=== PATIENT | male | born 1955 | race Caucasian/White ===

== ENCOUNTER → 2017-07-24 08:09 | Outpatient (CLI) | payer OTHER, SELFPAY ==
[2017-06-05 23:33] VITALS: BMI 25.1
[2017-06-06 01:41] VITALS: BP 143/89
== END ==
PROVIDERS: Family Provider Family Medicine Geriatric Medicine; PCP Family Medicine Geriatric Medicine; Visit Provider Internal Medicine Gastroenterology
DX: L29.0 Pruritus ani (principal)

== ENCOUNTER → 2017-08-04 08:07 | Outpatient (CLI) | payer OTHER, SELFPAY | PROVIDERS: Family Provider Family Medicine Geriatric Medicine; PCP Family Medicine Geriatric Medicine; Visit Provider Internal Medicine Gastroenterology | DX: L29.0 Pruritus ani (principal) ==

== ENCOUNTER → 2017-09-24 17:20 | Outpatient (CLI) | payer OTHER, SELFPAY ==
--- NOTE | 2017-09-24 | PROSBIL_PTH ---
PATIENT: BETH KESSLER LOC: [facility] U#:[id number] AGE/SX: 69/M ROOM: RE09/24/[address]: Dr. Billy Reyes MD : 1955 BED: DIS: SPEC #: [id number] RECD: 09/25/17 13:38 STATUS: PHIL SALLY #: [id number] ALEXIS: 09/24/17 00:[address]: Billy Reyes DEPT: SURGICAL PATHOLOGY RECD BY: Cristobal Tomlinson ENTERED: 09/25/17 13:39 SP TYPE: PROST BX KEIRA DR: Dr. Corey Kim MD Tissues: A - PROSTATE RIGHT B - PROSTATE RIGHT C - PROSTATE RIGHT D - PROSTATE LEFT E - PROSTATE LEFT F - PROSTATE LEFT Procedures: PROSTATE BX HEADER OPERATION: Prostate biopsy PRE-OP DIAGNOSIS: Elevated PSA TISSUE SUBMITTED: A - Right apex, B - Right mid, C - Right base, D - Left apex, E - Left mid, F - Left base MICROSCOPIC DIAGNOSIS A. Right prostate, apex, core biopsy: Prostatic tissue, negative for malignancy. B. Right prostate, mid, core biopsy: Prostatic tissue, negative for malignancy. C. Right prostate, base, core biopsy: Focal high-grade prostatic intraepithelial neoplasia (HGPIN). D. Left prostate, apex, core biopsy: Prostatic tissue, negative for malignancy. Focal atrophy. E. Left prostate, mid, core biopsy: Prostatic tissue, negative for malignancy. F. Left prostate, base, core biopsy: Prostatic tissue, negative for malignancy. SJ:rickey 09/28/17 MICROSCOPIC DESCRIPTION Slides are reviewed. GROSS DESCRIPTION A - Received is one container designated prostate, right apex. The specimen consists of two elongated fragments of light cain-white soft tissue each measuring 1.5 cm in length and 0.1 cm in diameter. The specimen is totally submitted in one cassette. B - Received is one container designated prostate, right mid. The specimen consists of two elongated fragments of light cain-white soft tissue each measuring 1.5 cm in length and 0.1 cm in diameter. The specimen is totally submitted in one cassette. C - Received is one container designated prostate, right base. The specimen consists of two elongated fragments of light cain-white soft tissue each measuring 1.5 cm in length and 0.1 cm in diameter. The specimen is totally submitted in one cassette. D - Received is one container designated prostate, left apex. The specimen consists of two elongated fragments of light cain-white soft tissue each measuring 1 cm in length and 0.1 cm in diameter. The specimen is totally submitted in one cassette. E - Received is one container designated prostate, left mid. The specimen consists of two elongated fragments of light cain-white soft tissue measuring 1 and 1.5 cm in length and 0.1 cm in diameter. The specimen is totally submitted in one cassette. F - Received is one container designated prostate, left base. The specimen consists of two elongated fragments of light cain-white soft tissue measuring 1 and 1.5 cm in length and 0.1 cm in diameter. The specimen is totally submitted in one cassette. / SJ:rg 09/25/17 TC:5 CPT: 57161 x6
== END ==
PROVIDERS: Family Provider Family Medicine Geriatric Medicine; PCP Family Medicine Geriatric Medicine; Visit Provider Urology
DX: R97.20 Elevated prostate specific antigen [PSA] (principal)
CPT/HCPCS: 88305; G0416

== ENCOUNTER → 2018-04-01 08:04 | Outpatient (CLI) | payer OTHER, SELFPAY ==
[2018-04-01 09:34] LABS: PSA,Total- Diagnostic 3.07 ng/mL (0.0-4.0)
== END ==
PROVIDERS: Family Provider Family Medicine Geriatric Medicine; PCP Family Medicine Geriatric Medicine; Referring Provider Urology; Visit Provider Urology
DX: R97.20 Elevated prostate specific antigen [PSA] (principal)
CPT/HCPCS: 36415; 84153

== ENCOUNTER → 2018-05-21 13:44 | Outpatient (CLI) | payer OTHER, SELFPAY ==
--- NOTE | 2018-05-21 13:47 | US_ITS ---
HISTORY: RT NECK LUMP TECHNIQUE: Santos scale and color doppler imaging was performed with attention to the right neck. COMPARISON: CT neck report (but not images 06/08/2010) FINDINGS: In the region of patient concern, the superficial right neck shows an oval benign-appearing lymph node measuring 1.4 x 0.4 x 1 cm. Associated vascular flow and fatty central hilum. No abscess or suspicious fluid collection. US/Head/Neck Soft Tissue IMPRESSION: 1. The right neck palpable lump shows an oval benign-appearing lymph node measuring 1.4 cm in length. Possible reactive node and recommend continued clinical follow-up. 2. If the palpable lump enlarges or symptoms worsen, further correlation with neck CT could be obtained. at 1050 Reported and signed by: Chaim Villeda MD Electronically Signed: Chaim Villeda, at 2:33 EST Tel , Service support ,
--- OUTSIDE RECORDS SUMMARY | 2018-07-16 13:07 | XMS RPT_ITS ---
:1955 Author Organization OHIP Support Name Relationship Address Phone GONZALO KESSLER Unavailable [address] + [place] [address] [employer] Unavailable [address] + [place] [address] [facility] GONZALO Unavailable [address] + [place] [address] [employer] Unavailable [address] + [place] [address] [facility] GONZALO Unavailable [address] + [place] [address] [employer] Unavailable [address] + [place] [address] [facility] GONZALO Unavailable [address] [phone] [place] [address] U Unavailable Unavailable Unavailable [facility] GONZALO Unavailable [address] [place] [phone] [place] [address] U Unavailable Unavailable Unavailable [facility] GONZALO Unavailable [address] [place] [phone] [place] [address] [employer] Unavailable [address] + [place] [address] [facility] Unavailable [address] [place] [phone] [place] [address] [employer] Unavailable [address] + [place] [address] [facility] Unavailable [address] [place] [phone] [place] [address] [employer] Unavailable [address] + [place] [address] GONZALO KESSLER Unavailable [address] [place] [phone] [place] [address] [employer] Unavailable [address] + [place] [address] Care Team Providers Name Role Phone Julio, Corey Chi Attending Unavailable Julio, Corey Chi Primary Care Unavailable Dorian López Attending Unavailable Dorian López Referring Unavailable Julio, Corey Chi Primary Care Unavailable Jorge Luis Lam Attending Unavailable Julio, Corey Chi Referring Unavailable EricBilly Attending Unavailable Julio, Corey Chi Primary Care Unavailable EricBillyJamel Referring Unavailable Julio, Corey Chi Attending Unavailable Julio, Corey Chi Referring Unavailable Julio, Corey Chi Primary Care Unavailable Julio, Corey Chi Attending Unavailable Julio, Corey Chi Referring Unavailable Julio, Corey Chi Primary Care Unavailable Dorian López Attending Unavailable Julio, Corey Chi Primary Care Unavailable Dorian López Attending Unavailable Julio, Corey Chi Primary Care Unavailable EricBilly Attending Unavailable Julio, Corey Chi Primary Care Unavailable EricBilly Referring Unavailable PROBLEMS PROBLEMS DATE TYPE CONDITION / CODE ATTENDING STATUS SOURCE 08/21/2017 Unknown L29.0 - Pruritus Dorian López Active [place] ani / Community L29.0(ICD-10) Hospital Repository 07/06/2017 Unknown R53.83 - Other Julio, Corey Chi Active [place] fatigue / Community R53.83(ICD-10) Hospital Repository 07/06/2017 Unknown Z12.5 - Julio, Corey Chi Active [place] Encounter for Community screening for Hospital malignant Repository neoplasm of prostate / Z12.5(ICD-10) 07/06/2017 Unknown Z13.89 - Julio, Corey Chi Active [place] Encounter for Community screening for Hospital other disorder / Repository Z13.89(ICD-10) PROCEDURES PROCEDURES No Procedure Records FoundRESULTS RESULTS CREATININE FINGERSTICK Collected: 05/27/2018 Status: F Source: [place] 7:35 AM [facility] [place] REPOSITORY TYPE CODE TESTS RESULT OUT OF RANGE REFERENCE UNITS LAB L9100.0210 0.70-1.30 mg/dL Normal CREATININE WB 1.0 Performed By: #### L9100.0200 #### [facility] Point of Care [address] [place] [address] SOFT TISSUE NECK WITH Observed: 05/27/2018 Status: F Source: [place] CONTRAST 7:26 AM [facility] [place] REPOSITORY [facility] [address] [place] [address] Soft Tissue Neck WITH Contrast MR#: [id number] Acct: [id number] Name: BETH KESSLER Rep #: [id number] : 1955 M 62 From: Alfredo Martinez MD PCP: Corey Kim MD, Chi Status: REG CLI Study: Soft Tissue Neck WITH Contrast Date of Exam: 05/27/18 Exam# [id number] Ordering Dr: Corey Kim MD STUDY: CT SOFT TISSUE NECK WITH CONTRAST REASON FOR EXAM: Male, 62 years old. Right-sided neck mass RADIATION DOSAGE (If Supplied By Facility): CTDIvol = ( 20.32 ) mGy, DLP = ( 603.95 ) mGycm TECHNIQUE: The patient was scanned in a multi-detector CT scanner. High resolution transaxial imaging was performed following intravenous administration of 75CC ml of Isovue 300 contrast material. Sagittal and coronal images were reconstructed. Individualized dose optimization techniques were used for this CT. COMPARISON: Right neck ultrasound May 21, 2018; CT soft tissues neck June 08, 2010 FINDINGS: Normal bilateral parotid glands. Normal bilateral executive vice president and chief financial officer spaces. Normal bilateral parapharyngeal spaces. There is mild, noncalcified, eccentric plaquing at the posterior origin of the right internal carotid artery with less than 25% narrowing. Partially calcified plaquing is less than 25% narrowing seen along the posterior wall of the left internal carotid artery origin. Normal bilateral sublingual and submandibular glands and spaces. Normal visualized nasopharynx. Normal retropharyngeal space. Normal perivertebral space. There is borderline fullness along the left anterolateral wall of the hypopharynx without a defined mass, which may be normal for this patient or could reflect minor inflammatory change. Mild lobulated mucosal/submucosal fullness at the posterior base of the tongue, greater on the left, may reflect localized lymphoid hypertrophy. The visualized tongue and oropharynx are otherwise normal. The visualized cervical lymph nodes (levels I-) are within normal size limits, and maintain normal morphology. A metal BB was placed along the right side of the neck (series 2 image 72, series 602 image 60). Again seen nearby is a benign-appearing 14 x 8.5 x 4.5 mm subcutaneous lymph node. There is no other demonstrated solid or cystic mass lesion. There is no abnormal contrast enhancement. Normal epiglottis, bilateral vallecula and hypopharynx. The pre-epiglottic and paraglottic adipose spaces are normal. Normal visualized bilateral piriform sinuses, aryepiglottic folds, vocal cords, and arytenoid-cricoid articulations. Normal subglottic trachea. Normal bilateral lobes of the thyroid gland. 5 mm well-defined low-density seen in the right lobe on prior CT is no longer apparent. Normal visualized pulmonary apices. There is a small fluid level in the dependent left maxillary sinus. The mid to posterior ethmoid sinus is opacified. The frontal sinuses are not included in the [id number]. The remaining paranasal sinuses are clear. There is multilevel degenerative changes of the cervical spine. CT/Soft Tissue Neck WITH Contrast IMPRESSION: 1. Small, benign-appearing lymph node in the subcutaneous tissues correlates to the palpable lesion on the right neck. 2. Small fluid level in the left maxillary sinus and opacified mid to posterior ethmoid sinus, consistent with sinusitis. 3. Borderline to mild fullness along the left posterior tongue as well as the left anterolateral wall of the hypopharynx. No defined mass. This could reflect mild lymphoid hypertrophy or other minor inflammatory change. 4. No demonstrated adenopathy. 5. Mild eccentric atherosclerotic plaquing with less than 25% narrowing at the proximal bilateral internal carotid arteries, stable on the right. 6. Multilevel degenerative changes of the cervical spine. Electronically Signed: Franki Martinez MD at 18:06 EST , Service support , CC: Corey Kim MD Chemical Preparer: Signed HEAD/NECK SOFT TISSUE Observed: 05/21/2018 Status: F Source: [place] 1:47 PM [facility] REPOSITORY [facility] [place] [address] Head/Neck Soft Tissue MR#: [id number] Acct: [id number] Name: BETH KESSLER Rep #: [id number] : 1955 M 62 From: Chaim Villeda MD PCP: Corey Kim MD, Chi Status: REG CLI Study: Head/Neck Soft Tissue Date of Exam: 05/21/18 Exam# [id number] Ordering Dr: Corey Kim MD HISTORY: RT NECK LUMP TECHNIQUE: Santos scale and color doppler imaging was performed with attention to the right neck. COMPARISON: CT neck report (but not images 06/08/2010) FINDINGS: In the region of patient concern, the superficial right neck shows an oval benign-appearing lymph node measuring 1.4 x 0.4 x 1 cm. Associated vascular flow and fatty central hilum. No abscess or suspicious fluid collection. US/Head/Neck Soft Tissue IMPRESSION: 1. The right neck palpable lump shows an oval benign-appearing lymph node measuring 1.4 cm in length. Possible reactive node and recommend continued clinical follow-up. 2. If the palpable lump enlarges or symptoms worsen, further correlation with neck CT could be obtained. at 0235 Reported and signed by: Chaim Villeda MD Electronically Signed: Chaim Villeda, at 2:33 EST Tel , Service support , CC: Corey Kim MD Chemical Preparer: Signed PSA,TOTAL- DIAGNOSTIC Collected: 04/01/2018 Status: F Source: [place] 8:11 AM [facility] [place] REPOSITORY TYPE CODE TESTS RESULT OUT OF RANGE REFERENCE UNITS LAB L501.9940 0.0-4.0 ng/mL PSA, Normal DIAGNOSTIC 3.07 Result Comment: This test was performed using the TPSA assay method for the Curio chemistry system. Values obtained with different assay methods cannot be used interchangably. When changing PSA assays in the course of monitoring a patient, additional sequential testing should be carried out to confirm baseline values. Performed By: #### L501.9940 #### [facility] [address] [place], [address] PROSTATE BIOPSY Observed: 09/24/2017 Status: F Source: [place] BILATERAL 12:00 AM [facility] REPOSITORY Patient: BETH KESSLER : 1955 (61/M) Acct Num: [id number] Phys: Eric SALINAS,Jamel Unit Num: [id number] Loc: LABSPEC Specimen: [id number] Received: 09/25/171337 Spec Type: PROST BX TISSUES TISSUES: A. PROSTATE RIGHT - APEX B. PROSTATE RIGHT - MID C. PROSTATE RIGHT - BASE D. PROSTATE LEFT - APEX E. PROSTATE LEFT - MID F. PROSTATE LEFT - BASE GROSS DESCRIPTION A - Received is one container designated prostate, right apex. The specimen consists of two elongated fragments of light cain-white soft tissue each measuring 1.5 cm in length and 0.1 cm in diameter. The specimen is totally submitted in one cassette. B - Received is one container designated prostate, right mid. The specimen consists of two elongated fragments of light cain-white soft tissue each measuring 1.5 cm in length and 0.1 cm in diameter. The specimen is totally submitted in one cassette. C - Received is one container designated prostate, right base. The specimen consists of two elongated fragments of light cain-white soft tissue each measuring 1.5 cm in length and 0.1 cm in diameter. The specimen is totally submitted in one cassette. D - Received is one container designated prostate, left apex. The specimen consists of two elongated fragments of light cain-white soft tissue each measuring 1 cm in length and 0.1 cm in diameter. The specimen is totally submitted in one cassette. E - Received is one container designated prostate, left mid. The specimen consists of two elongated fragments of light cain-white soft tissue measuring 1 and 1.5 cm in length and 0.1 cm in diameter. The specimen is totally submitted in one cassette. F - Received is one container designated prostate, left base. The specimen consists of two elongated fragments of light cain-white soft tissue measuring 1 and 1.5 cm in length and 0.1 cm in diameter. The specimen is totally submitted in one cassette. / MARCELLE:rickey 09/25/17 TC:5 CPT: 40271 x6 HEADER OPERATION: Prostate biopsy PRE-OP DIAGNOSIS: Elevated PSA TISSUE SUBMITTED: A - Right apex, B - Right mid, C - Right base, D - Left apex, E - Left mid, F - Left base MICROSCOPIC DESCRIPTION Slides are reviewed. MICROSCOPIC DIAGNOSIS A. Right prostate, apex, core biopsy: Prostatic tissue, negative for malignancy. B. Right prostate, mid, core biopsy: Prostatic tissue, negative for malignancy. C. Right prostate, base, core biopsy: Focal high-grade prostatic intraepithelial neoplasia (HGPIN). D. Left prostate, apex, core biopsy: Prostatic tissue, negative for malignancy. Focal atrophy. E. Left prostate, mid, core biopsy: Prostatic tissue, negative for malignancy. F. Left prostate, base, core biopsy: Prostatic tissue, negative for malignancy. SJ:rickey 09/28/17 Signed Mayito Kirby 09/28/17 <signature on file> Performed By: #### PPROSBIL #### [facility] [address] [place], [address] MISCELLANEOUS LAB Collected: 08/04/2017 Status: F Source: [place] PROCEDURE 7:00 AM [facility] REPOSITORY Order Comment: Test(s) Ordered: [id number] pin worm test TYPE CODE TESTS RESULT OUT OF RANGE REFERENCE UNITS LAB L801.1541 Normal [facility] [place] Result Comment: TEST RESULT LIMITS Pinworm Prep - Enterobius No pinworm eggs seen TESTING PERFORMED AT [facility]. ORIGINAL REPORT ON FILE IN LAB CONTAINS ADDITIONAL TEST SITE INFORMATION. Performed By: #### L801.1541 #### [facility] [address] [place], [address] MISCELLANEOUS LAB Collected: 07/23/2017 Status: F Source: [place] PROCEDURE 7:37 PM [facility] REPOSITORY Order Comment: Test(s) Ordered: PIN WORM TYPE CODE TESTS RESULT OUT OF RANGE REFERENCE UNITS LAB L801.1541 Normal [facility] [place] Result Comment: TEST RESULT LIMITS Pinworm Prep - Enterobius No pinworm eggs seen. None Seen TESTING PERFORMED AT [facility]. ORIGINAL REPORT ON FILE IN LAB CONTAINS ADDITIONAL TEST SITE INFORMATION. Performed By: #### L801.1541 #### [facility] [address] [place], [address] CBC W/DIFF, AUTOMATED Collected: 07/06/2017 Status: F Source: [place] 9:39 AM [facility] REPOSITORY TYPE CODE TESTS RESULT OUT OF RANGE REFERENCE UNITS LAB L100.1000 4.4-11.0 K/mm3 Normal WBC 7.1 LAB L100.1200 4.6-6.2 M/mm3 Normal RBC 5.03 LAB L100.1300 13.0-16.5 g/dl Normal HGB 15.2 LAB L100.1400 40-54 % Normal HCT 45.6 LAB L100.1500 80-94 fL Normal MCV 90.7 LAB L100.1600 27.0-32.0 pg Normal MCH 30.2 LAB L100.1700 32-36 g/gl Normal MCHC 33.3 LAB L100.1810 11.6-14.6 % Normal RDW CV 13.8 LAB L100.1820 35.1-43.9 fl High RDW SD 45.4 LAB L100.1900 150-450 K/mm3 Normal PLT 406 LAB L100.2000 6.2-12.0 fl Normal MPV 9.7 LAB L100.2100 47-70 % Normal NEUT% 51.5 LAB L100.2200 19-41 % Normal LY% 33.5 LAB L100.2300 0-10 % High MONO% 11.9 LAB L100.2400 0-5 % Normal EO% 1.7 LAB L100.2500 0-1 % Normal BASO% 0.6 LAB L100.2550 0.0-0.9 % Normal IM GRAN % 0.800 Result Comment: IG% - Immature Granulocytes (promyelocytes, myelocytes and metamyelocytes) > 1% indicates that a LEFT SHIFT is Present. LAB L100.2620 2.0-7.7 X10 3/uL Normal Absolute Neut 3.7 LAB L100.2720 0.83-4.51 X10 3/ul Normal Absolute Lymph 2.37 Performed By: #### L100.0100 #### [facility] [address] [place], [place], [address] COMPREHENSIVE METABOLIC Collected: 07/06/2017 Status: F Source: [facility] 9:39 AM [facility] REPOSITORY TYPE CODE TESTS RESULT OUT OF RANGE REFERENCE UNITS LAB L501.0100 70-110 mg/dL Normal GLU 100 LAB L501.1000 7-18 mg/dL Normal BUN 13 LAB L501.1100 0.70-1.30 mg/dL Normal 1.19 CREAT,SERUM Result Comment: The validity of the calculated GFR AND GFRAA in patients over 70 years has not been determined. Clinical correlation is essential. LAB L501.1110 >60 mL/min Normal EST GFR 66 Result Comment: Non- GFR Calc LAB L501.1115 >60 mL/min Normal EST GFR - AA 79 Result Comment: GFR Calc LAB L501.1300 10-20 RATIO Normal BUN/CRE 10.9 LAB L501.1500 6.4-8.2 g/dL T Normal PROT 7.3 LAB L501.1800 3.4-5.0 g/dL Normal ALB 3.7 Result Comment: Please note revised Albumin AND Globulin reference range effective 2017. LAB L501.1950 2.2-4.2 g/dL Normal GLOB 3.6 LAB L501.2000 0.9-2.4 RATIO Normal A/G 1.0 LAB L501.2200 8.5-10.1 mg/dL Normal CA 8.8 LAB L501.4100 15-37 U/L Low AST 12 LAB L501.4305 45-117 U/L Normal ALK P 55 LAB L501.4405 12-78 U/L Normal ALT 28 LAB L501.4600 0.20-1.00 mg/dL Normal T BILI 0.60 LAB L501.5300 136-145 mmol/L Normal NA 138 LAB L501.5600 3.5-5.1 mmol/L Normal K 3.9 LAB L501.5900 98-107 mmol/L Normal CL 101 LAB L501.6100 21.0-32.0 mmol/L Normal CO2 28.0 LAB L501.6200 5-15 Normal GAP 9 Performed By: #### L500.4050, L501.9520, L501.9910 #### [facility] [address] [facility] [place], [place], [address] THYROID STIM HORMONE Collected: 07/06/2017 Status: F Source: [place] (TSH) 9:39 AM [facility] REPOSITORY TYPE CODE TESTS RESULT OUT OF RANGE REFERENCE UNITS LAB L501.9520 0.358-3.74 uIU/mL Normal TSH 1.62 Performed By: #### L500.4050, L501.9520, L501.9910 #### [facility] [address] [place], [address] PSA,TOTAL - ANNUAL Collected: 07/06/2017 Status: F Source: [place] SCREEN 9:39 AM [facility] REPOSITORY TYPE CODE TESTS RESULT OUT OF REFERENCE UNITS RANGE LAB L501.9910 0.00-4.00 ng/mL High PSA,TOT 4.52 SCREEN Result Comment: This test was performed using the TPSA assay method for the Curio chemistry system. Values obtained with different assay methods cannot be used interchangably. When changing PSA assays in the course of monitoring a patient, additional sequential testing should be carried out to confirm baseline values. Performed By: #### L500.4050, L501.9520, L501.9910 #### [facility] [address] [place], [address] HEPATITIS C ANTIBODIES Collected: 07/06/2017 Status: F Source: [place] 9:39 AM [facility] REPOSITORY TYPE CODE TESTS RESULT OUT OF RANGE REFERENCE UNITS LAB L3100.0650 0.0-0.9 s/co ratio Normal HEP C AB <0.1 Result Comment: Negative: < 0.8 Indeterminate: 0.8 - 0.9 Positive: > 0.9 The CDC recommends that a positive HCV antibody result be followed up with a HCV Nucleic Acid Amplification test (176279). Performed at: [facility] [id number] Computer Network Specialist: Dorian Moseley PhD, Phone: [phone] Performed By: #### L3100.0625 #### [facility] (refer to report for specific site) refer to report for address and phone number ALLERGIES ALLERGIES DATE TYPE / CODE NAME / CODE REACTION SEVERITY SOURCE 06/05/2017 Drug No Known Unknown [facility] Allergy/4160 Allergies/F00 Hospital 71447(SNOMED 8104989(RXNOR Repository CT) M) ENCOUNTERS ENCOUNTERS ADMIT/DISCHARGE ACCOUNT ADMITTING ENCOUNTER LOCATION SOURCE NUMBER CLASS 05/27/2018 [id number] [place] [facility] ing:CT Repository 05/21/2018 [id number] Ambulatory [place] 1 [facility] ing:US Repository 04/01/2018 [id number] Ambulatory [place] 3 [facility] ing:LAB.FUTUR Repository E 09/24/2017 [id number] Ambulatory [place] 5 [facility] ing:LABSPEC Repository 09/23/2017/ [id number] Ambulatory BMSBuilding:B [place] 8 [facility] Repository 08/04/2017 [id number] Ambulatory [place] 8 [facility] ing:MTLAB Repository 07/24/2017 [id number] Amb[place] 5 [facility] ing:LABSPEC Repository 07/22/2017 [id number] Amb[place] 3 [facility] ing:MTLAB Repository 07/06/2017 [id number] Amb[place] 4 [facility] ing:POLAB3 Repository PAYERS PAYERS ENCOUNTER GUARANTOR PAYER SUBSCRIBER SOURCE 05/27/2018 BETH Gonzalez Primary BETH Marquezoster [id number] Insurance:SUMMA ERIKSENDOB: [facility] CAREPolicy Number: [id number] [place], [place] [id number] Repository [address]Fcp: (330) Date:8421-47-81PL [phone] (HP) [address] [place] [phone]: 05/27/2018 Secondary NOT GIVENUNK [place] Insurance:SELF PAY [facility] Number: Effective Repository Date:2018-05-21 05/21/2018 BETH Gonzalez Primary BETH Gonzalez [place] [id number] Insurance:SUMMA ERIKSENDOB: [facility] Number: [id number] [place], [place] [id number] Repository [address]Ymx: (330) Date:3858-55-62WG [phone] (HP) [address] [place] [phone]: 05/21/2018 Secondary NOT GIVENUNK [place] Insurance:SELF PAY [facility] Number: Effective Repository Date:2018-05-18 04/01/2018 BETH Gonzalez Primary BETH Marquezoster [id number] Insurance:SUMMA ERI[facility]ENDOB[facility] Number: [id number] [place], [place] [id number] Repository [address]Cpt: (330) Date:6108-41-94HA [phone] (HP) [address] [place] [phone]: 04/01/2018 Secondary NOT GIVENUNK [place] Insurance:SELF PAY [facility] Number: Effective Repository Date:2018-03-30 09/24/2017 BETH A Primary BETH A [place] [id number] Insurance:SUMMA ERIKSENDOB: Community [address] CAREPolicy Number: [id number] [place] [id number] Repository [address]Vxy: (330) Date:0869-31-15UU [phone] (HP) [place] [address]IM: 09/24/2017 Secondary NOT GIVENUNK [place] Insurance:SELF PAY [facility] Number: Effective Repository Date:2017-09-24 09/23/2017 BETH A Primary NOT GIVENUNK [place] [id number] Insurance:SELF PAY [place] Number: Effective Repository [id number]: (330) Date:2017-09-23 [phone] (HP) 08/04/2017 Beth A Primary Beth A [place] [id number] Insurance:SUMMA EriksenDOB: [facility] CAREPolicy Number: [id number] [place] [id number] Repository [address]Ztd: (330) Date:9674-52-84AB [phone] (HP) [place] [address]OY: 08/04/2017 Secondary NOT GIVENUNK [place] Insurance:SELF PAY [facility] Number: Effective Repository Date:2017-07-31 07/24/2017 Beth A Primary Beth A [place] [id number] Insurance:SUMMA EriksenDOB: [facility] Number: [id number] [place] [id number] Repository [address]Yhd: (330) Date:9628-79-22LN [phone] (HP) [address] [address]GV: 07/24/2017 Secondary NOT GIVENUNK [place] Insurance:SELF PAY [facility] Number: Effective Repository Date:2017-07-24 07/22/2017 Beth Gonzalez Primary Beth Marquezoster [id number] Insurance:SUMMA ChasesenDOB: [facility] Number: [id number] [place] [id number] Repository [address]Pne: (330) Date:1265-74-96UK [phone] () [address] [place] [phone]: 07/22/2017 Secondary NOT GIVENUNK [place] Insurance:SELF PAY [facility] Number: Effective Repository Date:2017-07-21 07/06/2017 Beth Gonzalez Primary Beth Marquezoster [id number] [facility] yonatanDOB: [facility] Number: [id number] [place], [place] [id number] Repository [address]Eti: (330) Date:8386-84-29WN [phone] () [address] [phone]: 07/06/2017 Secondary NOT GIVENUNK [place] Insurance:SELF PAY [facility] Number: Effective Repository Date:2017-07-06
== END ==
PROVIDERS: Family Provider Family Medicine Geriatric Medicine; PCP Family Medicine Geriatric Medicine; Referring Provider Family Medicine Geriatric Medicine; Visit Provider Family Medicine Geriatric Medicine
DX: R22.0 Localized swelling, mass and lump, head (principal)
CPT/HCPCS: 76536

== ENCOUNTER → 2018-05-27 07:20 | Outpatient (CLI) | payer OTHER, SELFPAY ==
[2017-06-05 23:33] VITALS: BMI 25.1
--- NOTE | 2018-05-27 07:25 | CT_ITS ---
STUDY: CT SOFT TISSUE NECK WITH CONTRAST REASON FOR EXAM: Male, 62 years old. Right-sided neck mass RADIATION DOSAGE (If Supplied By Facility): CTDIvol = ( 20.32 ) mGy, DLP = ( 603.95 ) mGycm TECHNIQUE: The patient was scanned in a multi-detector CT scanner. High resolution transaxial imaging was performed following intravenous administration of 75CC ml of Isovue 300 contrast material. Sagittal and coronal images were reconstructed. Individualized dose optimization techniques were used for this CT. COMPARISON: Right neck ultrasound May 21, 2018; CT soft tissues neck June 08, 2010 FINDINGS: Normal bilateral parotid glands. Normal bilateral liquor store manager spaces. Normal bilateral parapharyngeal spaces. There is mild, noncalcified, eccentric plaquing at the posterior origin of the right internal carotid artery with less than 25% narrowing. Partially calcified plaquing is less than 25% narrowing seen along the posterior wall of the left internal carotid artery origin. Normal bilateral sublingual and submandibular glands and spaces. Normal visualized nasopharynx. Normal retropharyngeal space. Normal perivertebral space. There is borderline fullness along the left anterolateral wall of the hypopharynx without a defined mass, which may be normal for this patient or could reflect minor inflammatory change. Mild lobulated mucosal/submucosal fullness at the posterior base of the tongue, greater on the left, may reflect localized lymphoid hypertrophy. The visualized tongue and oropharynx are otherwise normal. The visualized cervical lymph nodes (levels I-) are within normal size limits, and maintain normal morphology. A metal BB was placed along the right side of the neck (series 2 image 72, series 602 image 60). Again seen nearby is a benign-appearing 14 x 8.5 x 4.5 mm subcutaneous lymph node. There is no other demonstrated solid or cystic mass lesion. There is no abnormal contrast enhancement. Normal epiglottis, bilateral vallecula and hypopharynx. The pre-epiglottic and paraglottic adipose spaces are normal. Normal visualized bilateral piriform sinuses, aryepiglottic folds, vocal cords, and arytenoid-cricoid articulations. Normal subglottic trachea. Normal bilateral lobes of the thyroid gland. 5 mm well-defined low-density seen in the right lobe on prior CT is no longer apparent. Normal visualized pulmonary apices. There is a small fluid level in the dependent left maxillary sinus. The mid to posterior ethmoid sinus is opacified. The frontal sinuses are not included in the [id number]. The remaining paranasal sinuses are clear. There is multilevel degenerative changes of the cervical spine. CT/Soft Tissue Neck WITH Contrast IMPRESSION: 1. Small, benign-appearing lymph node in the subcutaneous tissues correlates to the palpable lesion on the right neck. 2. Small fluid level in the left maxillary sinus and opacified mid to posterior ethmoid sinus, consistent with sinusitis. 3. Borderline to mild fullness along the left posterior tongue as well as the left anterolateral wall of the hypopharynx. No defined mass. This could reflect mild lymphoid hypertrophy or other minor inflammatory change. 4. No demonstrated adenopathy. 5. Mild eccentric atherosclerotic plaquing with less than 25% narrowing at the proximal bilateral internal carotid arteries, stable on the right. 6. Multilevel degenerative changes of the cervical spine. Electronically Signed: Franki Martinez MD at 18:06 EST , Service support ,
== END ==
PROVIDERS: Family Provider Family Medicine Geriatric Medicine; PCP Family Medicine Geriatric Medicine; Referring Provider Family Medicine Geriatric Medicine; Visit Provider Family Medicine Geriatric Medicine
DX: R22.0 Localized swelling, mass and lump, head (principal)
CPT/HCPCS: 70491; Q9967

== ENCOUNTER → 2018-07-07 11:47 | Outpatient (CLI) | payer OTHER, SELFPAY ==
[2017-06-05 23:33] VITALS: BMI 25.1
[2018-07-07 17:28] LABS: Absolute Neutrophil Count 2.8 X10^3/uL (2.0-7.7); Basophil# 0.03 X10^3/uL; Basophil% 0.6 % (0-1); Eosinophil# 0.13 X10^3/uL; Eosinophils% 2.4 % (0-5); Hematocrit 49.1 % (40-54); Hemoglobin 16.2 g/dl (13.0-16.5); Lymphocyte % 31.4 % (19-41); Mean Corpuscular Hgb 30.2 pg (27.0-32.0); Mean Corpuscular Volume 91.4 fL (80-94); Mean Platelet Vol. 10.5 fl (6.2-12.0); Monocyte# 0.77 X10^3/uL; Monocyte% 14.2 % (0-10); Neutrophil # 2.77 X10^3/uL (2.7-7.7); Neutrophil % 51.2 % (47-70); Platelet Count 255 K/mm3 (150-450); RBC Distribution Width CV 13.4 % (11.6-14.6); RBC Distribution Width SD 44.4 fl (35.1-43.9); Red Blood Count 5.37 M/mm3 (4.6-6.2); White Blood Count 5.4 K/mm3 (4.4-11.0)
[2018-07-07 17:35] LABS: ALB/GLOB Ratio 1.4 RATIO (0.9-2.4); AST(SGOT) 19 U/L (15-37); Alanine Aminotransfer ALT/SGPT 28 U/L (16-61); Albumin, Serum 4.3 g/dL (3.2-5.0); Alkaline Phosphatase 59 U/L (45-117); Anion Gap 9 (5-15); BUN 12 mg/dL (7-18); BUN/Creat Ratio 9.2 RATIO (10-20); Calcium,Total 9.2 mg/dL (8.5-10.1); Chloride 102 mmol/L (98-107); EST Glomerular Filtration Rate 59 mL/min (>60); Est Glom Filt Rate - Afr Amer 71 mL/min (>60); Globulin 3.1 g/dL (2.2-4.2); Glucose 85 mg/dL (74-106); PSA,Total - Annual Screen 2.38 ng/mL (0.00-4.00); Protein, Total 7.4 g/dL (6.4-8.2); Sodium Level 141 mmol/L (136-145); Thyroid Stim Hormone (TSH) 1.44 uIU/mL (0.358-3.74)
[2018-07-07 17:46] LABS: POSITIVE COUNT NO; POSITIVE DIFFERENTIAL NO; POSITIVE MORPHOLOGY NO
--- OUTSIDE RECORDS SUMMARY | 2018-09-11 07:49 | XMS RPT_ITS ---
:1955 Author Organization OHIP Support Name Relationship Address Phone GONZALO KESSLER Unavailable [address] + [place] [address] [employer] Unavailable [address] + [place] [address] [facility] Unavailable [address] + [place] [address] [employer] Unavailable [address] + [place] [address] [facility] Unavailable [address] + [place] [address] [employer] Unavailable [address] + [place] [address] [facility] Unavailable [address] + [place] [address] [employer] Unavailable [address] + [place] [address] [facility] Unavailable [address] [phone] [place] [address] U Unavailable Unavailable Unavailable [facility] Unavailable [address] [place] [phone] [place] [address] U Unavailable Unavailable Unavailable [facility] Unavailable [address] [place] [phone] [place] [address] [employer] Unavailable [address] + [place] [address] [facility] Unavailable [address] [place] [phone] [place] [address] [employer] Unavailable [address] + [place] [address] GONZALO KESSLER Unavailable [address] [place] [phone] [place] [address] [employer] Unavailable [address] + [place] [address] Care Team Providers Name Role Phone Julio, Corey Chi Attending Unavailable Julio, Corey Chi Primary Care Unavailable Jabour, Dorian Attending Unavailable Julio, Corey Chi Primary Care Unavailable Jabour, Payament Attending Unavailable Julio, Corey Chi Primary Care Unavailable Jabour, Vincent Attending Unavailable Jabour, Vincent Referring Unavailable Julio, Corey Chi Primary Care Unavailable Jorge Luis Lam Attending Unavailable Julio, Corey Chi Referring Unavailable Eric, Billy Cortes Attending Unavailable Julio, Corey Chi Primary Care Unavailable Eric, Jamel Referring Unavailable Eric, Jamel Attending Unavailable Julio, Corey Chi Primary Care Unavailable Eric, Jamel Referring Unavailable Julio, Corey Chi Attending Unavailable Julio, Corey Chi Referring Unavailable Julio, Corey Chi Primary Care Unavailable Julio, Corey Chi Attending Unavailable Julio, Corey Chi Referring Unavailable Julio, Corey Chi Primary Care Unavailable PROBLEMS PROBLEMS DATE TYPE CONDITION / CODE ATTENDING STATUS SOURCE 07/07/2018 Unknown R53.83 - Other Julio, Corey Chi Active [facility] Community R53.83(ICD-10) Hospital Repository 07/07/2018 Unknown Z12.5 - Julio, Corey Chi Active [place] Encounter for Community screening for Hospital malignant Repository neoplasm of prostate / Z12.5(ICD-10) 08/21/2017 Unknown L29.0 - Pruritus Dorian López Active [facility] Community L29.0(ICD-10) Hospital Repository PROCEDURES PROCEDURES No Procedure Records FoundRESULTS RESULTS COMPREHENSIVE METABOLIC Collected: 07/07/2018 Status: F Source: [place] PROFIL [facility] TYPE CODE TESTS RESULT OUT OF RANGE REFERENCE UNITS LAB L501.0100 74-106 mg/dL Normal GLU 85 Result Comment: Please note revised GLUCOSE reference range effective 2017. LAB L501.1000 7-18 mg/dL Normal BUN 12 LAB L501.1100 0.70-1.30 mg/dL Normal CREAT,SERUM 1.30 Result Comment: The validity of the calculated GFR AND GFRAA in patients over 70 years has not been determined. Clinical correlation is essential. LAB L501.1110 >60 mL/min Low EST GFR 59 Result Comment: Non- GFR Calc LAB L501.1115 >60 mL/min Normal EST GFR - AA 71 Result Comment: GFR Calc LAB L501.1300 10-20 RATIO Low BUN/CRE 9.2 LAB L501.1500 6.4-8.2 g/dL Normal T PROT 7.4 LAB L501.1800 3.2-5.0 g/dL Normal ALB 4.3 LAB L501.1950 2.2-4.2 g/dL Normal GLOB 3.1 LAB L501.2000 0.9-2.4 RATIO Normal A/G 1.4 LAB L501.2200 8.5-10.1 mg/dL Normal CA 9.2 LAB L501.4100 15-37 U/L Normal AST 19 LAB L501.4305 45-117 U/L Normal ALK P 59 LAB L501.4405 16-61 U/L Normal ALT 28 LAB L501.4600 0.20-1.00 mg/dL High T BILI 1.20 LAB L501.5300 136-145 mmol/L Normal NA 141 LAB L501.5600 3.5-5.1 mmol/L Normal K 4.0 LAB L501.5900 98-107 mmol/L Normal CL 102 LAB L501.6100 21.0-32.0 mmol/L Normal CO2 30.0 LAB L501.6200 5-15 Normal GAP 9 Performed By: #### L500.4050, L501.9520, L501.9910 #### [facility] [address] [place], [place], [address] THYROID STIM HORMONE Collected: 07/07/2018 Status: F Source: [place] (TSH) 11:49 AM [facility] [place] TYPE CODE TESTS RESULT OUT OF RANGE REFERENCE UNITS LAB L501.9520 0.358-3.74 uIU/mL Normal TSH 1.44 Performed By: #### L500.4050, L501.9520, L501.9910 #### [facility] [address] [place], [place], [address] PSA,TOTAL - ANNUAL Collected: 07/07/2018 Status: F Source: [place] SCREEN 11:49 AM [facility] [place] TYPE CODE TESTS RESULT OUT OF RANGE REFERENCE UNITS LAB L501.9910 0.00-4.00 ng/mL Normal PSA,TOT 2.38 SCREEN Result Comment: This test was performed using the TPSA assay method for the Social Media Simplified chemistry system. Values obtained with different assay methods cannot be used interchangably. When changing PSA assays in the course of monitoring a patient, additional sequential testing should be carried out to confirm baseline values. Performed By: #### L500.4050, L501.9520, L501.9910 #### [facility] [address] [place], [place], [address] CBC W/DIFF, AUTOMATED Collected: 07/07/2018 Status: F Source: [place] 11:49 AM [facility] [place] TYPE CODE TESTS RESULT OUT OF RANGE REFERENCE UNITS LAB L100.1000 4.4-11.0 K/mm3 Normal WBC 5.4 LAB L100.1200 4.6-6.2 M/mm3 Normal RBC 5.37 LAB L100.1300 13.0-16.5 g/dl Normal HGB 16.2 LAB L100.1400 40-54 % Normal HCT 49.1 LAB L100.1500 80-94 fL Normal MCV 91.4 LAB L100.1600 27.0-32.0 pg Normal MCH 30.2 LAB L100.1700 32-36 g/gl Normal MCHC 33.0 LAB L100.1810 11.6-14.6 % Normal RDW CV 13.4 LAB L100.1820 35.1-43.9 fl High RDW SD 44.4 LAB L100.1900 150-450 K/mm3 Normal PLT 255 LAB L100.2000 6.2-12.0 fl Normal MPV 10.5 LAB L100.2100 47-70 % Normal NEUT% 51.2 LAB L100.2200 19-41 % Normal LY% 31.4 LAB L100.2300 0-10 % High MONO% 14.2 LAB L100.2400 0-5 % Normal EO% 2.4 LAB L100.2500 0-1 % Normal BASO% 0.6 LAB L100.2550 0.0-0.9 % Normal IM GRAN % 0.200 Result Comment: IG% - Immature Granulocytes (promyelocytes, myelocytes and metamyelocytes) > 1% indicates that a LEFT SHIFT is Present. LAB L100.2620 2.0-7.7 X10 3/uL Normal Absolute Neut 2.8 LAB L100.2720 0.83-4.51 X10 3/ul Normal Absolute Lymph 1.70 Performed By: #### L100.0100 #### [facility] [address] [place], [address] CREATININE FINGERSTICK Collected: 05/27/2018 Status: F Source: [place] 7:35 AM [facility] [place] TYPE CODE TESTS RESULT OUT OF RANGE REFERENCE UNITS LAB L9100.0210 0.70-1.30 mg/dL Normal CREATININE WB 1.0 Performed By: #### L9100.0200 #### [facility] Point of Care [address] [facility] [place] [address] SOFT TISSUE NECK WITH Observed: 05/27/2018 Status: F Source: [place] CONTRAST 7:26 AM [facility] [place] [facility] Imaging Services [address] [address] Soft Tissue Neck WITH Contrast MR#: [id number] Acct: [id number] Name: BETH KESSLER Rep #: [id number] : 1955 M 62 From: Alfredo Martinez MD PCP: Corey Kim MD, Chi Status: REG CLI Study: Soft Tissue Neck WITH Contrast Date of Exam: 05/27/18 Exam# [id number] Ordering Dr: Corey Kim MD STUDY: CT [...] FINDINGS: Normal bilateral parotid glands. Normal bilateral ios developer spaces. Normal bilateral parapharyngeal spaces. There is [...] frontal sinuses are not included in the [id number]. The remaining paranasal sinuses are clear. There [...] Service support , CC: Corey Kim MD Senior Court Office Assistant: Signed HEAD/NECK SOFT TISSUE Observed: 05/21/2018 Status: F Source: [place] 1:47 PM [facility] [place] [facility] Imaging Services [address] [place] [address] Head/Neck Soft Tissue MR#: [id number] Acct: [id number] Name: BETH KESSLER Rep #: [id number] : 1955 M 62 From: Chaim Villeda MD PCP: Corey Kim MD, Chi Status: REG CLI Study: Head/Neck Soft Tissue Date of Exam: 05/21/18 Exam# [id number] Ordering Dr: Corey Kim MD HISTORY: RT [...] Service support , CC: Corey Kim MD Senior Court Office Assistant: Signed PSA,TOTAL- DIAGNOSTIC Collected: 04/01/2018 Status: F Source: [place] 8:11 AM [facility] [place] TYPE CODE TESTS RESULT OUT OF RANGE REFERENCE UNITS LAB L501.9940 0.0-4.0 ng/mL PSA, Normal DIAGNOSTIC 3.07 Result Comment: This test was performed using the TPSA assay method for the Social Media Simplified chemistry system. Values obtained with different assay methods cannot be used interchangably. When changing PSA assays in the course of monitoring a patient, additional sequential testing should be carried out to confirm baseline values. Performed By: #### L501.9940 #### [facility] [place], [address] PROSTATE BIOPSY Observed: 09/24/2017 Status: F Source: [facility] 12:00 AM [facility] [place] Patient: BETH KESSLER : 1955 (61/M) Acct Num: [id number] Phys: Eric SALINAS,Jamel Unit Num: [id number] Loc: [facility] Specimen: [id number] Received: 09/25/171337 Spec Type: PROST BX TISSUES [...] one cassette. / MARCELLE:rickey 09/25/17 TC:5 CPT: 29716 x6 HEADER OPERATION: Prostate biopsy PRE-OP DIAGNOSIS: [...] core biopsy: Prostatic tissue, negative for malignancy. MARCELLE:rickey 09/28/17 Signed Mayito Kirby 09/28/17 <signature on file> Performed By: #### PPROSBIL #### [facility] [address] [place] [address], [address] [facility] Collected: 08/04/2017 Status: F Source: [place] PROCEDURE 7:00 AM [facility] [place] Order Comment: Test(s) Ordered: [id number] pin worm test TYPE CODE TESTS RESULT OUT OF RANGE REFERENCE UNITS LAB L801.1541 Normal [facility] LAB TEST Result Comment: TEST RESULT LIMITS Pinworm Prep - Enterobius No pinworm eggs seen TESTING PERFORMED AT [facility]. ORIGINAL REPORT ON FILE IN LAB CONTAINS ADDITIONAL TEST SITE INFORMATION. Performed By: #### L801.1541 #### [facility] [address] [place], [place] [address], [address] [facility] LAB Collected: 07/23/2017 Status: F Source: [place] PROCEDURE 7:37 PM [facility] [place] [place] Order Comment: Test(s) Ordered: PIN WORM TYPE CODE TESTS RESULT OUT OF RANGE REFERENCE UNITS LAB L801.1541 Normal [facility] LAB TEST Result Comment: TEST RESULT LIMITS Pinworm Prep - Enterobius No pinworm eggs seen. None Seen TESTING PERFORMED AT [facility]. ORIGINAL REPORT ON FILE IN LAB CONTAINS ADDITIONAL TEST SITE INFORMATION. Performed By: #### L801.1541 #### [facility] [address] [place], [address] ALLERGIES ALLERGIES DATE TYPE / CODE NAME / CODE REACTION SEVERITY SOURCE 06/05/2017 Drug No Known Unknown [facility] Allergy/4160 Allergies/F00 Hospital 48784(SNOMED 7590722(RXNOR Repository CT) M) ENCOUNTERS ENCOUNTERS ADMIT/DISCHARGE ACCOUNT ADMITTING ENCOUNTER LOCATION SOURCE NUMBER CLASS 07/07/2018 [id number] Ambulatory [facility] [place] 5 [facility] ing:POLAB3 Repository 05/27/2018 [id number] Ambulatory [facility] [place] 1 [facility] ing:CT Repository 05/21/2018 [id number] Ambulatory [facility] 1 [facility] ing:US Repository 04/01/2018 [id number] Amb[place] 3 [facility] ing:LAB.FUTUR Repository E 09/24/2017 [id number] Ambulatory [place] [facility] 5 [facility] ing:[facility] Repository 09/23/2017/ [id number] Ambulatory BMSBuilding:B [facility] [address] [place] [address] Repository 08/04/2017 [id number] Ambulatory [facility] 8 [facility] ing:MTLAB Repository 07/24/2017 [id number] [place] 5 [facility] ing:[facility]SPEC Repository 07/22/2017 [id number] Ambulatory [facility] [place] 3 [facility] ing:MTLAB Repository PAYERS PAYERS ENCOUNTER GUARANTOR PAYER SUBSCRIBER SOURCE 07/07/2018 BETH Lisa Primary BETH A [place] [id number] Insurance:SUMMA ERALONDRASENDOB: [facility] Number: [id number] [place], [place] [id number] Repository [address]Fxn: 330) Date:5630-71-83HE [phone] (IK) [place] [address]YC: 07/07/2018 Secondary NOT GIVENUNK [place] Insurance:SELF PAY [facility] Number: Effective Repository Date:2018-07-07 05/27/2018 BETH Gonzalez Primary BETH A [facility] [id number] Insurance:SUMMA ERIKSENDOB: [facility] CAREPolicy Number: [id number] [place], [place] [id number] Repository [address]Cgn: (330) Date:6839-22-01IE [phone] () [place] [address]XI: 05/27/2018 Secondary NOT GIVENUNK [place] Insurance:SELF PAY [facility] Number: Effective Repository Date:2018-05-21 05/21/2018 BETH Gonzalez Primary BETH A [facility] [id number] Insurance:SUMMA ERIKSENDOB: [facility] CAREPolicy Number: [id number] [place], [place] [id number] Repository [address]Rge: (330) Date:6230-61-16AY [phone] () [address] [place] [address]IU: 05/21/2018 Secondary NOT GIVENUNK [facility] Insurance:SELF PAY [facility] Number: Effective Repository Date:2018-05-18 04/01/2018 BETH Gonzalez Primary BETH A [facility] [id number] Insurance:SUMMA ERIKSENDOB: [facility] CAREPolicy Number: [id number] [place], [place] [id number] Repository [address]Eto: (330) Date:5903-00-65IX [phone] (HP) [address] [place] [phone]: 04/01/2018 Secondary NOT GIVENUNK [place] Insurance:SELF PAY [facility] Number: Effective Repository Date:2018-03-30 09/24/2017 BETH Gonzalez Primary BETH A [place] [id number] Insurance:SUMMA ERIKSENDOB: [facility] CAREPolicy Number: [id number] [place], [place] [id number] Repository [address]Icl: (330) Date:2485-44-23GG [phone] (HP) [place] [address]JK: 09/24/2017 Secondary NOT GIVENUNK [facility] Insurance:SELF PAY [facility] Number: Effective Repository Date:2017-09-24 09/23/2017 BETH A Primary NOT GIVENUNK [place] [id number] Insurance:SELF PAY [place] Number: Effective Repository [address]Lkm: (330) Date:2017-09-23 [phone] (HP) 08/04/2017 Beth A Primary Beth A [facility] [id number] Insurance:SUMMA EriksenDOB: [facility] Number: [id number] [place], [place] [id number] Repository [address]Gec: (330) Date:2791-23-04HF [phone] () 362[facility] [place] [address]WG: 08/04/2017 Secondary NOT GIVENUNK [facility] Insurance:SELF PAY [facility] Number: Effective Repository Date:2017-07-31 07/24/2017 Beth A Primary Beth A [facility] [id number] Insurance:SUMMA EriksenDOB: [facility] Number: [id number] [place], [place] [id number] Repository [address]Kre: (330) Date:4134-98-84OZ [phone] (HP) [address] [address]JL: 07/24/2017 Secondary NOT GIVENUNK [place] Insurance:SELF PAY [facility] Number: Effective Repository Date:2017-07-24 07/22/2017 Beth A Primary Beth A [place] [id number] Insurance:SUMMA EriksenDOB: [facility] [place] [facility] Number: [id number] [place] [id number] Repository [address]Qgs: (330) Date:4328-70-74TU [phone] (CT) [place] [address]IQ: 07/22/2017 Secondary NOT GIVENUNK [place] Insurance:SELF PAY Community [facility] Number: Effective Repository Date:2017-07-21
== END ==
PROVIDERS: Family Provider Family Medicine Geriatric Medicine; PCP Family Medicine Geriatric Medicine; Visit Provider Family Medicine Geriatric Medicine
DX: R53.83 Other fatigue (principal); Z12.5 Encounter for screening for malignant neoplasm of prostate
CPT/HCPCS: 36415; 80053; 84153; 84443; 85025; G0103

== ENCOUNTER → 2019-06-01 10:27 | Outpatient (CLI) | payer MEDICARE, OTHER, SELFPAY ==
--- NOTE | 2019-06-01 10:42 | RAD_ITS ---
STUDY: X-RAY - RIGHT ELBOW REASON FOR EXAM: Male, 63 years old. Pain for one month. TECHNIQUE: 3 view(s) of the elbow. COMPARISON: None. FINDINGS: Normal visualized humerus, radius and ulna. Normal radiocapitellar and ulnotrochlear articulations. There is no acute fracture, dislocation or destructive osseous pathology. The soft tissue structures are unremarkable. RAD/Elbow min 3 Views IMPRESSION: Normal x-ray examination of the elbow. Electronically Signed: Vince Mcclellan DO at 18:33 EST Tel [phone], Service support ,
== END ==
PROVIDERS: Family Provider Family Medicine Geriatric Medicine; PCP Family Medicine Geriatric Medicine; Referring Provider Family Medicine Geriatric Medicine; Visit Provider Family Medicine Geriatric Medicine
DX: M25.521 Pain in right elbow (principal)
CPT/HCPCS: 73080

== ENCOUNTER → 2019-07-11 12:21 | Outpatient (CLI) | payer MEDICARE, OTHER, SELFPAY ==
[2017-06-05 23:33] VITALS: BMI 25.1
[2019-07-11 14:06] LABS: Absolute Neutrophil Count 1.9 X10^3/uL (2.0-7.7); Basophil# 0.04 X10^3/uL; Basophil% 0.8 % (0-1); Eosinophils% 2.1 % (0-5); Hematocrit 49.1 % (40-54); Hemoglobin 15.3 g/dL (13.0-16.5); Lymphocyte % 42.1 % (19-41); Mean Corp Hgb Conc 31.2 g/dL (32-36); Mean Corpuscular Hgb 27.6 pg (27.0-32.0); Mean Corpuscular Volume 88.5 fL (80-94); Mean Platelet Vol. 10.2 fl (6.2-12.0); Monocyte# 0.68 X10^3/uL; Monocyte% 14.3 % (0-10); NRBC Flagged by Analyzer 0 % (0-5); Neutrophil # 1.92 X10^3/uL (2.7-7.7); Neutrophil % 40.5 % (47-70); Platelet Count 295 K/mm3 (150-450); RBC Distribution Width SD 41.9 fl (35.1-43.9); Red Blood Count 5.55 M/mm3 (4.6-6.2); White Blood Count 4.8 K/mm3 (4.4-11.0)
[2019-07-11 14:41] LABS: BUN 12 mg/dL (7-18); Creatinine, Serum 1.37 mg/dL (0.70-1.30); Glucose 92 mg/dL (74-106)
[2019-07-11 14:42] LABS: ALB/GLOB Ratio 1.2 RATIO (0.9-2.4); AST(SGOT) 17 U/L (15-37); Alanine Aminotransfer ALT/SGPT 27 U/L (16-61); Albumin, Serum 3.9 g/dL (3.2-5.0); Alkaline Phosphatase 58 U/L (45-117); Anion Gap 5 (5-15); BUN/Creat Ratio 8.8 RATIO (10-20); Calcium,Total 9.1 mg/dL (8.5-10.1); Chloride 105 mmol/L (98-107); EST Glomerular Filtration Rate 55 mL/min (>60); Est Glom Filt Rate - Afr Amer 67 mL/min (>60); Globulin 3.2 g/dL (2.2-4.2); PSA,Total - Annual Screen 3.64 ng/mL (0.00-4.00); Protein, Total 7.1 g/dL (6.4-8.2); Sodium Level 139 mmol/L (136-145); Thyroid Stim Hormone (TSH) 1.95 uIU/mL (0.358-3.74)
== END ==
PROVIDERS: PCP Family Medicine Geriatric Medicine; Visit Provider Family Medicine Geriatric Medicine
DX: E55.9 Vitamin D deficiency, unspecified (principal); R53.83 Other fatigue; F52.8 Other sexual dysfunction not due to a substance or known physiological condition; Z12.5 Encounter for screening for malignant neoplasm of prostate
CPT/HCPCS: 36415; 80053; 84153; 84403; 84443; 85025; G0103

== ENCOUNTER → 2019-08-17 08:20 | Outpatient (CLI) | payer MEDICARE, OTHER, SELFPAY ==
[2017-06-05 23:33] VITALS: BMI 25.1
--- NOTE | 2019-08-17 15:18 | NEURO ---
NCS and/or EMG Patient Report Ordering Doctor: Corey Kim Chi DATE OF SERVICE: 08/17/19 Agus Xavier is a 63-year-old male presents for electrodiagnostic testing of the right upper limb. He reports pain in the right elbow since April 2019. He denies any significant numbness or tingling. Electrodiagnostic findings: The right median motor nerve demonstrates prolonged distal latency with normal amplitude and conduction velocity. Normal right ulnar motor response, including conduction across the elbow. Normal right median and ulnar F waves. Prolonged right median sensory latency at the wrist. On needle EMG, all muscles tested in the right upper limb showed no evidence of denervation with normal motor unit action potentials. Electrodiagnostic impression this is an abnormal study in the right upper limb. 1. 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 There is no clinical evidence, however for carpal tunnel syndrome. 2. No electrodiagnostic evidence is noted for ulnar neuropathy. 3. No electrodiagnostic evidence for cervical radiculopathy. If there are any further questions, please do not hesitate to contact me.
== END ==
PROVIDERS: Family Provider Family Medicine Geriatric Medicine; PCP Family Medicine Geriatric Medicine; Referring Provider Family Medicine Geriatric Medicine; Visit Provider Family Medicine Geriatric Medicine
DX: R20.2 Paresthesia of skin (principal); R20.0 Anesthesia of skin
CPT/HCPCS: 95886; 95910

== ENCOUNTER → 2019-09-12 14:07 | Outpatient (CLI) | payer MEDICARE, OTHER, SELFPAY ==
--- NOTE | 2019-09-12 14:15 | VDLE_ITS ---
Reason For Study: Edema RIGHT LEFT GSV is normal. GSV is normal. CFV is compressible, spontaneous, phasic, CFV is compressible, spontaneous, phasic, competent and demonstrates normal competent, and demonstrates normal augmentation. augmentation. FV is compressible, spontaneous, phasic, FV is compressible, spontaneous, phasic, competent and demonstrates normal competent and demonstrates normal augmentation. augmentation. POP V is compressible, spontaneous, phasic, POP V is compressible, spontaneous, phasic, competent and demonstrates normal competent and demonstrates normal augmentation. augmentation. T/P Trunk is compressible. T/P Trunk is compressible. PTV is compressible. PTV is compressible. RT PerV is compressible. LT PerV is compressible. Procedure Exam performed in department. A preliminary report was called and/or faxed to Julio. Interpretation Summary Deep veins of the lower extremities are bilaterally patent and compressible segmentally. There is no evidence of deep vein thrombosis on either side. Valvular competence appears intact within the proximal deep venous systems bilaterally. The great saphenous veins appear bilaterally patent and compressible segmentally. Ordering Physician: Corey Kim Referring Physician: Corey Kim Chi Performed By: Betty Maxwell RVT
[2019-09-12 14:53] LABS: Absolute Lymphocyte Count 1.81 X10^3/uL (0.83-4.51); Absolute Neutrophil Count 7.4 X10^3/uL (2.0-7.7); Basophil# 0.06 X10^3/uL; Basophil% 0.6 % (0-1); Eosinophil# 0.08 X10^3/uL; Eosinophils% 0.7 % (0-5); Hematocrit 44.7 % (40-54); Hemoglobin 13.8 g/dL (13.0-16.5); Lymphocyte # 1.81 X10^3/ul (4.0); Lymphocyte % 16.9 % (19-41); Mean Corp Hgb Conc 30.9 g/dL (32-36); Mean Corpuscular Hgb 27.3 pg (27.0-32.0); Mean Corpuscular Volume 88.3 fL (80-94); Mean Platelet Vol. 9.5 fl (6.2-12.0); Monocyte# 1.28 X10^3/uL; NRBC Flagged by Analyzer 0 % (0-5); Neutrophil # 7.42 X10^3/uL (2.7-7.7); Neutrophil % 69.4 % (47-70); Platelet Count 319 K/mm3 (150-450); RBC Distribution Width CV 14.3 % (11.6-14.6); RBC Distribution Width SD 45.2 fl (35.1-43.9); Red Blood Count 5.06 M/mm3 (4.6-6.2); White Blood Count 10.7 K/mm3 (4.4-11.0)
[2019-09-12 15:01] LABS: Anion Gap 7 (5-15); BUN 16 mg/dL (7-18); BUN/Creat Ratio 13.6 RATIO (10-20); Calcium,Total 9.1 mg/dL (8.5-10.1); Chloride 102 mmol/L (98-107); Creatinine, Serum 1.18 mg/dL (0.70-1.30); EST Glomerular Filtration Rate 66 mL/min (>60); Est Glom Filt Rate - Afr Amer 80 mL/min (>60); Glucose 92 mg/dL (74-106); Potassium 4.1 mmol/L (3.5-5.1); Sodium Level 138 mmol/L (136-145)
[2019-09-12 15:22] LABS: Erythrocyte Sedimentation Rate 7 mm/hr (0-20)
== END ==
PROVIDERS: PCP Family Medicine Geriatric Medicine; Visit Provider Family Medicine Geriatric Medicine
DX: M25.569 Pain in unspecified knee (principal)
CPT/HCPCS: 36415; 80048; 85025; 85652; 86140; 93970

== ENCOUNTER 2019-09-13 02:37 | Inpatient (IN) | payer MEDICARE, OTHER, SELFPAY ==
[2019-09-13] VITALS (7 sets, daily range): BP systolic 111–158; BP diastolic 54–89; PULSE 74–88; RESP 16–18; TEMP 36.6–37.6; O2SAT 95–99; BMI 25.8; BMI 24.8
--- NOTE | 2019-09-13 03:00 | ED.VISSUMM ---
- ER Visit Summary Date of Service: 09/13/19 Chief Complaint: Left lower leg below the knee pain and swelling. History of Present Illness: The patient is a 63 M Past medical or significant past surgical history. Patient states he has been remodeling his home and helping his son do the same. He has been kneeling on his knees. He has had pain in the left knee just below the knee over the pre-tibial area for approximately [address] Walker had negative ultrasounds of his legs and lab work done. CBC and chemistry are unremarkable the CRP was elevated at 48. He states Dr. Walker gave him an IM injection of something. He denies fevers. States tonight he did have some chills. Physical Examination: Older male no acute distress vital signs are stable and afebrile. He does not look septic or toxic. H EENT exam unremarkable. Neck nontender. Lungs clear to auscultation bilaterally. Heart regular rhythm no murmur. Abdomen soft nontender normal bowel sounds no peritoneal signs. Extremities patient is moving all 4. Neurovascular intact. The left groin there is no lymphadenopathy. The left knee at the free tibial bursa over the tibial tuberosity is swollen tender mildly red. There does not appear to be a septic joint. There is no significant edema to lower leg. Calf is nontender. Left foot neurovascularly intact with normal DP pulse. Dorsi and plantar flexion. There are no cords. Test Results: I did review the labs that his primary care physician ordered 1 day ago. White count was normal at 10. Normal hemoglobin. No bands. Chemistries were unremarkable. CRP was elevated at 48. Aspiration of the left knee infrapatellar bursa was positive for gram-positive cocci in clusters consistent with infection. The able to obtain a small amount of bursa fluid so we chose to have them do the Gram stain and culture. A cell count cannot be done off of what was obtained. I then did a formal incision and drainage and made about a 1 inch horizontal incision. Was able to express only a small amount of purulent material. Packing was placed. Emergency Department Course and Treatment: Clinically this appears to be a tibial tuberosity bursitis. The question is is it a simple bursitis or is it infected. I will attempt to aspirate fluid from the bursa. Treatment Plan: Due to this being a septic bursitis. I will start the patient on IV antibiotics. I spoke to the hospitalist admission. And he will consult orthopedics in the morning. They may or may not need to do additional incision and drainage depending on the patient's progress. Disposition: Admission Impression: Acute left lower leg swelling secondary to infrapatellar septic bursitis This note was generated with [employer] dictation software. It may contain incorrect words, spelling, and punctuation that were not noted in review of the chart prior to signing ED Disposition - Plan for ED Patient: Referrals: Corey Kim Chi, MD [Primary Care Provider] -
[2019-09-13] MEDS: Lidocaine/Epi/Tetracaine 50 ML 1 APPLIC TOPICAL (03:10)
[2019-09-13] MEDS: HYDROcodone Bitartrate/Apap 5/325 Tablet PO (04:10)
[2019-09-13] MEDS: Cefazolin 2 GM in 0.9% Normal Saline 100 ML IV (05:04)
--- NOTE | 2019-09-13 05:04 | PCM.HP.STD ---
Problem List (1) Prepatellar bursitis, left knee Status: Acute History of Present Illness Date of Admission: 09/13/19 Chief Complaint: left knee pain / swelling The patient is a 63 year old male patient with no past medical history presents the emergency room with pain in his left knee. Onset of this pain began 1 week ago when he was helping his son remodel his home when he was doing eden work on his knees for most of the day. Since that time there is been increasing swelling and redness and pain in the front of the knee of the kneecap. He saw his primary care physician who ran some blood work and gave him a shot of antibiotics as an outpatient. The pain persisted and got worse this evening metabolic panel were within normal limits however CRP was elevated in the 40s. In the ER the bursa underwent incision and drainage and pussy discharge was obtained and the patient experienced relief of his pain. The specimen had positive for gram-positive cocci in clusters. He will be admitted for observation and consult to orthopedic surgery Past Medical History Allergies No Known Allergies Allergy (Verified 09/13/19 02:43) Home Medications: Ambulatory Orders Medication Instructions Recorded Aspirin [Aspirin, Baby] 81 mg PO DAILY@0800 07/14/14 Anastrozole 0.5 mg PO TUFR 09/13/19 Nabumetone [Relafen] 500 mg PO BID 09/13/19 Smoking Status: Former smoker Tobacco Use: Non-smoker - *Family History Maternal History Items: No pertinent history Review of Systems Constitutional: Denies: Chills, Fever, Weight Change HEENT: Denies: Head Aches, Sinus Congestion, Sinus Drainage Cardiovascular: Denies: Chest Pain, Palpitations Respiratory: Denies: Cough, Shortness of breath at rest, Sputum production Gastrointestinal: Denies: Abdominal Pain, Nausea, Vomiting Genitourinary: Denies: Dysuria Musculoskeletal: Reports: Joint Pain, Joint swelling, Joint Tenderness Skin: Denies: Rash, Wounds Neurological: Denies: Numbness, Tingling, Focal weakness Psychiatric: Denies: Anxiety, Depression, Homicidal Ideations, Suicidal Ideations Hematologic/ Lymphatic: Denies: Easy Bruising, Easy Bleeding VTE Information - Inpt Only VTE Present on Admission: No VTE Mechan Device Prophylaxis: None VTE Pharm Prophylaxis ordered?: Yes Patient Problems: Active and Suspected Problems Prepatellar bursitis, left knee (Acute) - Physical Exam Vitals/I&O's: Vital Signs Temp Pulse Resp BP Pulse Ox 98.9 F 76 18 129/71 H 99 09/13/19 04:55 09/13/19 04:55 09/13/19 04:55 09/13/19 04:55 09/13/19 04:55 Oxygen Delivery Method Room Air Weight: 174 lb 13.225 oz Body Mass Index (BMI) 25.8 General: Alert, Oriented x3, Cooperative HEENT: Atraumatic, Normocephalic Neck: Supple, Negative Carotid Bruits Lungs: Clear to auscultation, Normal air movement Cardiovascular: Regular rate, Normal S1, Normal S2, No murmurs Abdomen: Bowel Sounds Present Extremities: Edema, Tenderness - left knee Skin: No rashes Musculoskeletal: No Tenderness to Palpation of Joints or Extremities Neurological: Neuro grossly intact Psych/Mental Status: Normal Affect, Appropriate Microbiology Past 72 Hours 09/13/19 03:40 Fluid - Synovial (joint) Gram Stain - Preliminary Laboratory Results 09/13/19 03:40: Fluid Crystals Cancelled, Fluid Crystal Source Cancelled, Fl Crystal Path Review Cancelled, Synovial Source Cancelled, Synovial Color Cancelled, Synovial Appearance Cancelled, Synovial Volume Cancelled, Synovial Viscosity Cancelled, Synovial WBC Cancelled, Synovial RBC Cancelled, Synovial Tot Cell Ct Cancelled, Synov Polynuclear WBCs Cancelled, Synov Mononuclear WBCs Cancelled, Synovial Neutrophils Cancelled, Synovial Lymphocytes Cancelled, Synovial Monocytes Cancelled, Synovial Plasma Cells Cancelled, Synovial Other Cells Cancelled, Synovial Polynuclear % Cancelled, Synovial Mononuclear % Cancelled, Synovial Path Comment Cancelled Current Medications Cefazolin Sodium 2 gm/ Sodium (Chloride) 110 mls @ 150 mls/hr IV X1 ONE Stop: 09/13/19 05:30 Last Admin: 09/13/19 05:04 Dose: 150 mls/hr Documented by: Assessment/Plan All Active Problems Prepatellar bursitis, left knee (Acute) Plan 1. Prepatellar bursitis status post incision and drainage?continue IV antibiotics- consult orthopedic surgeon for evaluation, [place] PRN for pain at this time. 2. DVT prophylaxis?low molecular weight heparin OBSV E&M: 47025 Initial observation care L2
[2019-09-13 05:46] LABS: Absolute Lymphocyte Count 1.63 X10^3/uL (0.83-4.51); Absolute Neutrophil Count 8.5 X10^3/uL (2.0-7.7); Basophil# 0.05 X10^3/uL; Basophil% 0.4 % (0-1); Eosinophil# 0.06 X10^3/uL; Eosinophils% 0.5 % (0-5); Hematocrit 42.3 % (40-54); Hemoglobin 13.6 g/dL (13.0-16.5); Lymphocyte # 1.63 X10^3/ul (4.0); Lymphocyte % 13.9 % (19-41); Mean Corp Hgb Conc 32.2 g/dL (32-36); Mean Corpuscular Hgb 27.6 pg (27.0-32.0); Mean Platelet Vol. 9.4 fl (6.2-12.0); Monocyte# 1.47 X10^3/uL; Monocyte% 12.5 % (0-10); NRBC Flagged by Analyzer 0 % (0-5); Neutrophil # 8.48 X10^3/uL (2.7-7.7); Neutrophil % 72.3 % (47-70); Platelet Count 301 K/mm3 (150-450); RBC Distribution Width SD 43.5 fl (35.1-43.9); Red Blood Count 4.92 M/mm3 (4.6-6.2); White Blood Count 11.7 K/mm3 (4.4-11.0)
[2019-09-13 05:57] LABS: Anion Gap 9 (5-15); BUN 14 mg/dL (7-18); BUN/Creat Ratio 10.9 RATIO (10-20); Calcium,Total 8.5 mg/dL (8.5-10.1); Chloride 102 mmol/L (98-107); Creatinine, Serum 1.28 mg/dL (0.70-1.30); EST Glomerular Filtration Rate 60 mL/min (>60); Est Glom Filt Rate - Afr Amer 72 mL/min (>60); Estimated Creatinine Clearance 59.41 ml/min; Glucose 108 mg/dL (74-106); Potassium 4.2 mmol/L (3.5-5.1); Sodium Level 136 mmol/L (136-145)
[2019-09-13] MEDS: oxyCODONE 5 MG Tablet PO ×3 (06:13→20:56)
[2019-09-13] MEDS: Enoxaparin 40 MG/0.4 ML Syringe SC (06:16)
--- NOTE | 2019-09-13 06:22 | PCM.RX.CS ---
Consult Pharmacy has been consulted to manage selected antiobiotic: Vancomycin Type of Consult: New start Suspected Infection: Skin/Soft tissue Prior Doses of Antibiotics Received/Current Regimen: Medications Vancomycin HCl 1,500 mg/ (Sodium Chloride) 530 mls @ 250 mls/hr IV Q24H [facility] Vancomycin HCl 1,250 mg/ (Sodium Chloride) 275 mls @ 167 mls/hr IV X1 ONE Stop: 09/13/19 07:38 Last Admin: 09/13/19 06:13 Dose: 167 mls/hr Labs: Sodium 136 mmol/L (136-145) 09/13/19 05:05 Potassium 4.2 mmol/L (3.5-5.1) 09/13/19 05:05 Chloride 102 mmol/L (98-107) 09/13/19 05:05 Carbon Dioxide 25.0 mmol/L (21.0-32.0) 09/13/19 05:05 Anion Gap 9 (5-15) 09/13/19 05:05 BUN 14 mg/dL (7-18) 09/13/19 05:05 Creatinine 1.28 mg/dL (0.70-1.30) 09/13/19 05:05 Est GFR (MDRD) Af Amer 72 mL/min (>60) 09/13/19 05:05 Est GFR (MDRD) Non-Af 60 mL/min (>60) 09/13/19 05:05 BUN/Creatinine Ratio 10.9 RATIO (10-20) 09/13/19 05:05 Glucose 108 mg/dL (74-106) H 09/13/19 05:05 Microbiology: Microbiology 09/13/19 03:40 Fluid - Synovial (joint) Gram Stain - Preliminary Weight used for dosin.5 kg Estimated Creatinine Clearance: 59 Goal Trough: 10-15 mcg/mL Pharmacy Plan for Drug Dosing: Pharmacy Service will continue to monitor and adjust dosing as required. Follow-Up Labs: Trough Vancomycin Labs to be done on [date and time ordered]: 09/15/19 @8137
--- NOTE | 2019-09-13 07:36 | PCM.PN.BLA ---
Progress Note Patient is a 63-year-old gentleman admitted with left knee pain diagnosed with prepatellar infected bursa 1. Left knee pain ?Secondary to infected prepatellar bursa. Patient underwent I&D in the emergency department, cultures were sent and started on broad-spectrum antibiotic therapy. Consultation was placed to orthopedics. 2. DVT prophylaxis ?low Risk, did encourage early ambulation STROKE Vital Signs/Narrative: Vital Signs Temp Pulse Resp BP Pulse Ox 09/13/19 06:57 99.6 F H 83 16 138/76 H 98 09/13/19 04:55 98.9 F 76 18 129/71 H 99 09/13/19 03:43 98.8 F 88 17 137/54 H 99
--- NOTE | 2019-09-13 08:38 | RAD_ITS ---
STUDY: X-RAY - LEFT KNEE REASON FOR EXAM: Male, 63 years old. WOUND LEFT KNEE TECHNIQUE: 4 view(s) of the knee. COMPARISON: None. FINDINGS: Normal visualized distal femur. Normal visualized proximal tibia and fibula. Normal proximal tibiofibular articulation. Normal medial femorotibial compartment. Normal lateral femorotibial compartment. Normal patellofemoral articulation. Degenerative spur is seen along the anterior superior aspect of the patella. Prepatellar soft tissue swelling. RAD/Knee 4 or More Views IMPRESSION: Prepatellar soft tissue swelling. Degenerative spur is seen along the anterior superior aspect of the patella. Electronically Signed: Waylon Moody, at 9:42 EDT , Service support ,
--- NOTE | 2019-09-13 08:41 | CON.PCM_ITS ---
Reason for Consult Date of Consultation: 09/13/19 Reason for Consultation: Left knee pain History of Present Illness: The patient is a 63 year old M [who over the past week or so has been helping his son ripped up some eden and has been on his knees a lot. He cannot recall any injury but he noted that he started to have some pain and redness over the front of his left knee that was getting worse. He does not have any lacerations or abrasions. He went to see his primary care provider Dr. Walker yesterday. He was given intramuscular injection of antibiotics and a venous Doppler ultrasound of the left lower extremity was ordered. He was negative for DVT. He was supposed to follow-up with his PCP today. He had increased pain overnight. He went to the emergency department. The emergency department physician performed an I&D of an abscess area over the anterior aspect of the tibial tubercle of the left knee. They sent for Gram stain culture and sensitivity. Preliminary findings were a positive Gram stain. Packing was placed in the abscess. He was admitted to the third floor at [facility]. He was started on broad-spectrum IV antibiotics. Orthopedic consultation was requested. The knee was normal and pain-free prior to the onset of the symptoms. No hip or ankle pain at this time. No numbness or tingling into the legs.] Past Medical History Allergies No Known Allergies Allergy (Verified 09/13/19 02:43) Home Medications: Ambulatory Orders Medication Instructions Recorded Aspirin [Aspirin, Baby] 81 mg PO DAILY@0800 07/14/14 Anastrozole 0.5 mg PO TUFR 09/13/19 Nabumetone [Relafen] 500 mg PO BID 09/13/19 Smoking Status: Former smoker Tobacco Use: Cigarettes - *Family History Maternal History Items: No pertinent history Review of Systems Comment: Review of systems are documented in the electronic medical record and were personally reviewed Patient Problems: Active and Suspected Problems Prepatellar bursitis, left knee (Acute) Subjective: Patient is resting comfortably in hospital bed at rest upon entering the room. No acute distress at rest. Inspection of left hip is without deformity. Left hip without tenderness. Full range of motion left hip without pain. Inspection of left knee is with swelling and erythema anteriorly over the level of the tibial tubercle with gauze packing in place. Left knee is without palpable effusion. Left knee is without tenderness to palpation. There is tenderness to palpation over the soft tissues surrounding the tibial tubercle on the left. Negative valgus/varus stress test on the left. Range of motion left knee is 0 to 95 degrees. Negative Jesi bilaterally without signs of DVT. Left ankle without deformity or tenderness. Full range of motion left ankle without pain. Pedal pulses present and equal bilaterally. Legs are neurovascularly intact. - Physical Exam Vitals/I&O's: Vital Signs Temp Pulse Resp BP Pulse Ox 99.6 F H 83 16 138/76 H 98 09/13/19 06:57 09/13/19 06:57 09/13/19 06:57 09/13/19 06:57 09/13/19 06:57 Oxygen Delivery Method Room Air Weight: 78.471 kg Body Mass Index (BMI) 24.8 Intake and Output for Last 24 Hours 09/11/19 09/12/19 09/13/19 23:59 23:59 23:59 Intake Total 110 / 110 Balance 110 / 110 Microbiology Past 72 Hours 09/13/19 03:40 Fluid - Synovial (joint) Gram Stain - Preliminary Laboratory Results 09/13/19 03:40: Fluid Crystals Cancelled, Fluid Crystal Source Cancelled, Fl Crystal Path Review Cancelled, Synovial Source Cancelled, Synovial Color Cancelled, Synovial Appearance Cancelled, Synovial Volume Cancelled, Synovial Viscosity Cancelled, Synovial WBC Cancelled, Synovial RBC Cancelled, Synovial Tot Cell Ct Cancelled, Synov Polynuclear WBCs Cancelled, Synov Mononuclear WBCs Cancelled, Synovial Neutrophils Cancelled, Synovial Lymphocytes Cancelled, Synovial Monocytes Cancelled, Synovial Plasma Cells Cancelled, Synovial Other Cells Cancelled, Synovial Polynuclear % Cancelled, Synovial Mononuclear % Cancelled, Synovial Path Comment Cancelled 09/13/19 05:05: WBC 11.7 H, RBC 4.92, Hgb 13.6, Hct 42.3, MCV 86.0, MCH 27.6, MCHC 32.2, RDW Std Deviation 43.5, RDW Coeff of Jonah 14.0, Plt Count 301, MPV 9.4, Immature Gran % (Auto) 0.400, Neut % (Auto) 72.3 H, Lymph % (Auto) 13.9 L, Hill % (Auto) 12.5 H, Eos % (Auto) 0.5, Baso % (Auto) 0.4, Absolute Neuts (auto) 8.5 H, Absolute Lymphs (auto) 1.63, Nucleated RBC % 0 09/13/19 05:05: Sodium 136, Potassium 4.2, Chloride 102, Carbon Dioxide 25.0, Anion Gap 9, BUN 14, Creatinine 1.28, Estim Creat Clear Calc 59.41, Est GFR (MDRD) Af Amer 72, Est GFR (MDRD) Non-Af 60, BUN/Creatinine Ratio 10.9, Glucose 108 H, Calcium 8.5 Current Medications Anastrozole (Arimidex) 0.5 mg PO TUFR [facility] Aspirin (Aspirin, Baby) 81 mg PO DAILY@0800 [facility] Etodolac (Lodine) 200 mg PO BIDCM [facility] Vancomycin IV Pharmacy to Dose (1 ea/ Sodium Chloride) 500 mls @ 250 mls/hr IV PRN PRN; Protocol PRN Reason: Rx to Dose Sodium Chloride () 250 mls @ 15 mls/hr IV .[id number] PRN PRN Reason: Saline Flush Last Infusion: 09/13/19 06:26 Dose: 0 mls/hr Documented by: Vancomycin HCl 1,500 mg/ (Sodium Chloride) 530 mls @ 250 mls/hr IV Q24H [facility] Oxycodone HCl (Oxyir) 5 mg PO Q4H PRN PRN PRN Reason: Pain Score 6-10/10 Last Admin: 09/13/19 06:13 Dose: 5 mg Documented by: Sodium Chloride () 10 - 40 ml IV UD PRN PRN Reason: SALINE FLUSH Assessment/Plan All Active Problems Prepatellar bursitis, left knee (Acute) Laboratory results were reviewed preliminary Gram stain was positive for gram- positive cocci in clusters. White blood cell count was elevated at 11.7. Impression: Left knee septic prepatellar bursa status post I&D in the emergency department responding to broad-spectrum IV antibiotics Plan: Discussed and reviewed treatment options with Dr. Kendall Watkins as well as the patient. Recommended conservative nonoperative treatment measures at this time. We will order a CRP and ESR. We will order weightbearing x-rays of the left knee. Rest ice elevate for any pain or swelling. Compress with elastic Dell wrap. May weight-bear as tolerated with a walker. Work on gentle range of motion left knee. Awaiting results of culture and sensitivity. Continue with wound packing at this time. Continue with broad-spectrum antibiotics as ordered by hospitalist. I explained that the plan/goal would be to treat him nonoperatively. I will reassess him again tomorrow morning plan to pull the gauze packing and consider repacking allowing this wound to heal by secondary intention. Upon receiving sensitivities we will hope to discharge patient on an oral antibiotic and follow-up in the office.
[2019-09-13 09:21] LABS: Erythrocyte Sedimentation Rate 24 mm/hr (0-20)
[2019-09-13] MEDS: Etodolac 200 MG Capsule PO ×2 (09:33→17:27)
[2019-09-13] MEDS: Aspirin 81 MG TAB.CHEW PO (09:33)
--- NOTE | 2019-09-13 13:15 | CASEMGMT ---
RN CM Face to Face with patient for initial transition planning/care coordination assessment. RN CM introduced self and role at [facility]. Patient lying in bed, alert and oriented. Patient willing to participate in assessment and is able to answer all questions appropriately. Care providers, pharmacy, and demographics verified. Patient wishes to discharge home, denies need for home health at this time, will monitor for need pending course of treatment. Patient states he has no further needs or concerns at this time. CM to follow for discharge planning needs that may arise. PCP: Julio Specialists: Sandy Abdul [facility] Prescription Benefit: yes Living Will/HPOA: yes, Orquidea Xavier LNOK: Living Arrangements: Patient lives with in 2 story home with bed and bath on the 1st floor. Patient is independent at home. Transportation: self/ DME/HHC: patient states he has raised toilet, walker, and crutches at home. Patient denies previous HHC. Disposition Plan: Patient to discharge home with family support and follow-up plans in place. Will monitor for need for HHC pending type of ATB at discharge. Betty TERRY, RN, CM
[2019-09-14 03:03] VITALS: BP 128/76; PULSE 75; RESP 16; TEMP 36.6; O2SAT 99
[2019-09-14] MEDS: 0.9% Saline Lock 10 ML Syringe IV ×2 (05:57→08:06)
--- NOTE | 2019-09-14 07:46 | PN.ORTHO_ITS ---
Patient Problems: Active and Suspected Problems Prepatellar bursitis, left knee (Acute) Subjective: Patient is sitting comfortably in hospital bed at rest during exam. No adverse events overnight. He admits he got a very good night sleep. The pain in the left knee has improved slightly. He was able to walk some laps in the hallway yesterday. Pain medications are helping. Denies chest pain shortness of breath dizziness or calf pain. Doing well overall. Objective: Inspection of left knee reveals an erythematous edematous area over the anterior aspect of the tibial tubercle with a small lanced area with a gauze wick in place without active drainage. Left knee range of motion 0 to 95 degrees. Negative valgus/varus stress test. Negative Jesi bilaterally without signs of DVT. There is swelling noted of the lower leg. Without tenderness to palpation over the left ankle. Full range of motion left ankle without pain. Sensation intact light touch. Capillary refill less than 3 seconds. Neurovascularly intact. Procedure note: Under sterile conditions the gauze packing was removed from the surgical site. A new sterile wick of half inch gauze packing was inserted into the site. Dry sterile dressing was applied. Patient tolerated procedure well. - Physical Exam Vitals/I&O's: Vital Signs Temp Pulse Resp BP Pulse Ox 98 F 75 16 128/76 H 99 09/14/19 03:03 09/14/19 03:03 09/14/19 03:03 09/14/19 03:03 09/14/19 03:03 Oxygen Delivery Method Room Air Weight: 78.471 kg Body Mass Index (BMI) 24.8 Intake and Output for Last 24 Hours 09/12/19 09/13/19 09/14/19 23:59 23:59 23:59 Intake Total 3185 / 3185 100 / 100 Balance 3185 / 3185 100 / 100 Microbiology Past 72 Hours 09/13/19 03:40 Fluid - Synovial (joint) Gram Stain - Final Laboratory Results 09/13/19 05:05: ESR 24 H 09/13/19 05:05: C-React Prot Ext Range 60.30 H Current Medications Anastrozole (Arimidex) 0.5 mg PO TUFR [facility] Aspirin (Aspirin, Baby) 81 mg PO DAILY@0800 [facility] Last Admin: 09/13/19 09:33 Dose: 81 mg Documented by: Etodolac (Lodine) 200 mg PO BIDCM [facility] Last Admin: 09/13/19 17:27 Dose: 200 mg Documented by: Vancomycin IV Pharmacy to Dose (1 ea/ Sodium Chloride) 500 mls @ 250 mls/hr IV PRN PRN; Protocol PRN Reason: Rx to Dose Sodium Chloride () 250 mls @ 15 mls/hr IV .[id number] PRN PRN Reason: Saline Flush Last Infusion: 09/13/19 06:26 Dose: 0 mls/hr Documented by: Vancomycin HCl 1,500 mg/ (Sodium Chloride) 530 mls @ 250 mls/hr IV Q24H [facility] Last Admin: 09/14/19 05:57 Dose: 250 mls/hr Documented by: Oxycodone HCl (Oxyir) 5 mg PO Q4H PRN PRN PRN Reason: Pain Score 6-10/10 Last Admin: 09/13/19 20:56 Dose: 5 mg Documented by: Sodium Chloride () 10 - 40 ml IV UD PRN PRN Reason: SALINE FLUSH Last Admin: 09/14/19 05:57 Dose: 10 ml Documented by: Medical Necessity - Tobacco Use Smoking Status: Former smoker Tobacco Use: Cigarettes Assessment/Plan All Active Problems Prepatellar bursitis, left knee (Acute) Left knee septic prepatellar bursitis responding to IV antibiotics. Continue with rest ice compression elevation for any pain or swelling. Continue pain medications as needed. Continue bilateral teds and SCDs. Continue weightbearing as tolerated with crutches or a walker. Continue working on gentle range of motion left knee. Continue with broad-spectrum IV antibiotics until culture sensitivity results are posted. We will order a CBC for today. Will review upon posting later today. We will plan to see him tomorrow. Anticipate discharge with an antibiotic regimen as recommended by hospitalist IV versus oral upon posting of cultures and sensitivities.
--- NOTE | 2019-09-14 07:52 | PN_ITS ---
Patient Problems: Active and Suspected Problems Prepatellar bursitis, left knee (Acute) Reason for Visit: prepatellar infected bursa Subjective: Patient is a 63-year-old gentleman admitted with left knee pain diagnosed with prepatellar infected bursa Objective: GENERAL: cooperative HEENT: Atraumatic; EYES; Anicteric, Normal Conjunctiva NECK; supple, normal thyroid, RESPIRATORY: Diminished to auscultation CARDIOVASCULAR: Regular S1 S2, GI: soft, normoactive bowel sounds, : No Renal angle tenderness; EXTREMITIES: No edema, no clubbing, MUSCULOSKELETAL: L Knee wrapped NEURO: Awake; no lateralizing signs. SKIN: No Rash PSYCH; Flat affect Vitals/I&O's: Vital Signs Temp Pulse Resp BP Pulse Ox 98 F 75 16 128/76 H 99 09/14/19 03:03 09/14/19 03:03 09/14/19 03:03 09/14/19 03:03 09/14/19 03:03 Oxygen Delivery Method Room Air Weight: 78.471 kg Body Mass Index (BMI) 24.8 Intake and Output for Last 24 Hours 09/12/19 09/13/19 09/14/19 23:59 23:59 23:59 Intake Total 3185 / 3185 100 / 100 Balance 3185 / 3185 100 / 100 Microbiology Past 72 Hours 09/13/19 03:40 Fluid - Synovial (joint) Gram Stain - Final Laboratory Results 09/13/19 05:05: ESR 24 H 09/13/19 05:05: C-React Prot Ext Range 60.30 H Current Medications Anastrozole (Arimidex) 0.5 mg PO TUFR [facility] Aspirin (Aspirin, Baby) 81 mg PO DAILY@0800 [facility] Last Admin: 09/13/19 09:33 Dose: 81 mg Documented by: Etodolac (Lodine) 200 mg PO BIDCM [facility] Last Admin: 09/13/19 17:27 Dose: 200 mg Documented by: Vancomycin IV Pharmacy to Dose (1 ea/ Sodium Chloride) 500 mls @ 250 mls/hr IV PRN PRN; Protocol PRN Reason: Rx to Dose Sodium Chloride () 250 mls @ 15 mls/hr IV .[id number] PRN PRN Reason: Saline Flush Last Infusion: 09/13/19 06:26 Dose: 0 mls/hr Documented by: Vancomycin HCl 1,500 mg/ (Sodium Chloride) 530 mls @ 250 mls/hr IV Q24H [facility] Last Admin: 09/14/19 05:57 Dose: 250 mls/hr Documented by: Oxycodone HCl (Oxyir) 5 mg PO Q4H PRN PRN PRN Reason: Pain Score 6-10/10 Last Admin: 09/13/19 20:56 Dose: 5 mg Documented by: Sodium Chloride () 10 - 40 ml IV UD PRN PRN Reason: SALINE FLUSH Last Admin: 09/14/19 05:57 Dose: 10 ml Documented by: Medical Necessity - Tobacco Use Smoking Status: Former smoker Tobacco Use: Cigarettes Assessment/Plan All Active Problems Prepatellar bursitis, left knee (Acute) Patient is a 63-year-old gentleman admitted with left knee pain diagnosed with prepatellar infected bursa 1. Left knee pain ?Secondary to infected prepatellar bursa. Patient underwent I&D in the emergency department, cultures were sent and started on broad-spectrum antibiotic therapy. Consultation was placed to orthopedics. 09/14/2019; patient seen still complains of some discomfort in the knee. Cultures were sent on admission results still pending. 2. DVT prophylaxis ?low Risk, did encourage early ambulation Inpatient E&M: [id number] [facility] L2
[2019-09-14 08:29] LABS: Absolute Lymphocyte Count 1.78 X10^3/uL (0.83-4.51); Absolute Neutrophil Count 6.8 X10^3/uL (2.0-7.7); Basophil# 0.05 X10^3/uL; Basophil% 0.5 % (0-1); Eosinophil# 0.12 X10^3/uL; Eosinophils% 1.2 % (0-5); Hematocrit 42.8 % (40-54); Hemoglobin 13.2 g/dL (13.0-16.5); Lymphocyte # 1.78 X10^3/ul (4.0); Lymphocyte % 17.5 % (19-41); Mean Corp Hgb Conc 30.8 g/dL (32-36); Mean Corpuscular Hgb 26.7 pg (27.0-32.0); Mean Corpuscular Volume 86.6 fL (80-94); Mean Platelet Vol. 8.6 fl (6.2-12.0); Monocyte# 1.37 X10^3/uL; Monocyte% 13.5 % (0-10); NRBC Flagged by Analyzer 0 % (0-5); Neutrophil # 6.82 X10^3/uL (2.7-7.7); Platelet Count 287 K/mm3 (150-450); RBC Distribution Width CV 14.4 % (11.6-14.6); RBC Distribution Width SD 45.1 fl (35.1-43.9); Red Blood Count 4.94 M/mm3 (4.6-6.2); White Blood Count 10.2 K/mm3 (4.4-11.0)
[2019-09-14 10:00] VITALS: BP 121/75; PULSE 81; RESP 16; TEMP 36.8; O2SAT 96
[2019-09-14] MEDS: Aspirin 81 MG TAB.CHEW PO (10:03)
[2019-09-14] MEDS: Etodolac 200 MG Capsule PO ×2 (10:03→17:17)
--- NOTE | 2019-09-14 10:55 | CASEMGMT ---
RN CM Note: Intro role of CM to patient. Discussed options for dc including home w/po antibiotics vs home w/IV antibiotics. List of HHC given and reviewed as well as Infusion companies reviewed. Pt has MCR. Pt is agreeable to [facility] and [facility]. Referral made by email to Etta @ [facility]- need for HHC not determined yet, will update. Per patient, is able to assist at home with IV antibiotics, ADL and meals, transportation. Pt states he has equipment he needs. -PT/OT not ordered yet. Message left with Dr. Watkins's office requesting if Dr. Watkins would like PT/OT initiated. Nel KAPOOR has seen pt had recommendations for increased activity WBAT with crutches or a walker. Awaiting call back. Doug LIZARRAGA RN ACM
[2019-09-14 16:02] VITALS: BP 150/87; PULSE 77; RESP 18; TEMP 36.8; O2SAT 99
[2019-09-14 21:50] VITALS: BP 101/64; PULSE 77; RESP 16; TEMP 36.5; O2SAT 100
[2019-09-15 02:40] VITALS: BP 128/71; PULSE 78; RESP 18; TEMP 37; O2SAT 97
[2019-09-15] MEDS: 0.9% Saline Lock 10 ML Syringe IV (05:42)
[2019-09-15 06:18] LABS: Creatinine, Serum 1.21 mg/dL (0.70-1.30); EST Glomerular Filtration Rate 64 mL/min (>60); Est Glom Filt Rate - Afr Amer 77 mL/min (>60); Estimated Creatinine Clearance 62.84 ml/min; Vancomycin, Trough Level 4.9 ug/mL (5.0-15.0)
--- NOTE | 2019-09-15 07:33 | PCM.RX.CS ---
Consult Pharmacy has been consulted to manage selected antiobiotic: Vancomycin Type of Consult: Follow-up Suspected Infection: Other Prior Doses of Antibiotics Received/Current Regimen: Vancomycin 1250mg IV x1, then Vancomycin 1500mg q24h x1 Labs: Sodium 136 mmol/L (136-145) 09/13/19 05:05 Potassium 4.2 mmol/L (3.5-5.1) 09/13/19 05:05 Chloride 102 mmol/L (98-107) 09/13/19 05:05 Carbon Dioxide 25.0 mmol/L (21.0-32.0) 09/13/19 05:05 Anion Gap 9 (5-15) 09/13/19 05:05 BUN 14 mg/dL (7-18) 09/13/19 05:05 Creatinine 1.21 mg/dL (0.70-1.30) 09/15/19 05:40 Est GFR (MDRD) Af Amer 77 mL/min (>60) 09/15/19 05:40 Est GFR (MDRD) Non-Af 64 mL/min (>60) 09/15/19 05:40 BUN/Creatinine Ratio 10.9 RATIO (10-20) 09/13/19 05:05 Glucose 108 mg/dL (74-106) H 09/13/19 05:05 Vancomycin Trough 4.9 ug/mL (5.0-15.0) L 09/15/19 05:40 Microbiology: Microbiology 09/13/19 03:40 Fluid - Synovial (joint) Gram Stain - Final 09/13/19 03:40 Fluid - Synovial (joint) Body Fluid Culture - Preliminary Staphylococcus aureus Weight used for dosin.5 kg Estimated Creatinine Clearance: 63ml/min Goal Trough: 10-15 mcg/mL Pharmacy Plan for Drug Dosing: Pt's trough resulted at 4.9. Recommend changing pt's Vancomycin dose from 1500mg IV q24h to 750mg IV q12h. Per clinical pharmacology that dose will give an est trough of 14. Trough will be drawn before the 4th dose on 09/17/19 at 0530. Pharmacy Service will continue to monitor and adjust dosing as required. Follow-Up Labs: Trough Vancomycin - 09/17/19 at 0530
--- NOTE | 2019-09-15 07:47 | PCM.PN.ORT ---
Patient Problems: Active and Suspected Problems Prepatellar bursitis, left knee (Acute) Subjective: 63-year-old male who is sitting comfortably in bed no adverse events overnight. The pain in the left knee continues to improve. He is continued with broad-spectrum IV antibiotics. He was able to walk 15 laps around the hallway yesterday his range of motion is improving. Pain medications are helping. Denies chest pain shortness of breath dizziness or calf pain. Seems to be doing well overall. Objective: Patient is alert and oriented x3 no acute distress at rest breathing easily without respiratory distress. Left knee dressing was removed the dry sterile dressing that was applied yesterday was without any active drainage. Under sterile conditions the gauze wick was removed and a new dry sterile bandage was applied. Patient tolerated procedure well. The lanced surgical site is without active drainage. Erythema is improving. Without fluctuance over the prepatellar bursa area. Minimal tenderness over this area. Left knee range of motion is 0 to 110 degrees. Negative Jesi bilaterally without signs of DVT. Left ankle with minimal swelling/edema. Left ankle without tenderness. Full range of motion left ankle without pain. Sensation intact light touch. Capillary refill less than 3 seconds. Neurovascularly intact. - Physical Exam Vitals/I&O's: Vital Signs Temp Pulse Resp BP Pulse Ox 98.6 F 78 18 128/71 H 97 09/15/19 02:40 09/15/19 02:40 09/15/19 02:40 09/15/19 02:40 09/15/19 02:40 Oxygen Delivery Method Room Air Weight: 78.471 kg Body Mass Index (BMI) 24.8 Intake and Output for Last 24 Hours 09/13/19 09/14/19 09/15/19 23:59 23:59 23:59 Intake Total 3185 / 3185 691.25 / 691.25 Balance 3185 / 3185 691.25 / 691.25 Microbiology Past 72 Hours 09/13/19 03:40 Fluid - Synovial (joint) Gram Stain - Final 09/13/19 03:40 Fluid - Synovial (joint) Body Fluid Culture - Preliminary Staphylococcus aureus Laboratory Results 09/14/19 08:18: WBC 10.2, RBC 4.94, Hgb 13.2, Hct 42.8, MCV 86.6, MCH 26.7 L, MCHC 30.8 L, RDW Std Deviation 45.1 H, RDW Coeff of Jonah 14.4, Plt Count 287, MPV 8.6, Immature Gran % (Auto) 0.300, Neut % (Auto) 67.0, Lymph % (Auto) 17.5 L, Lamb % (Auto) 13.5 H, Eos % (Auto) 1.2, Baso % (Auto) 0.5, Absolute Neuts (auto) 6.8, Absolute Lymphs (auto) 1.78, Nucleated RBC % 0 09/15/19 05:40: Vancomycin Trough 4.9 L 09/15/19 05:40: Creatinine 1.21, Estim Creat Clear Calc 62.84, Est GFR (MDRD) Af Amer 77, Est GFR (MDRD) Non-Af 64 Current Medications Aspirin (Aspirin, Baby) 81 mg PO DAILY@0800 [facility] Last Admin: 09/14/19 10:03 Dose: 81 mg Documented by: Etodolac (Lodine) 200 mg PO BIDCM [facility] Last Admin: 09/14/19 17:17 Dose: 200 mg Documented by: Vancomycin IV Pharmacy to Dose (1 ea/ Sodium Chloride) 500 mls @ 250 mls/hr IV PRN PRN; Protocol PRN Reason: Rx to Dose Sodium Chloride () 250 mls @ 15 mls/hr IV .[id number] PRN PRN Reason: Saline Flush Last Infusion: 09/14/19 14:05 Dose: 0 mls/hr Documented by: Vancomycin HCl 1,500 mg/ (Sodium Chloride) 530 mls @ 250 mls/hr IV Q24H [facility] [place] Last Admin: 09/15/19 05:42 Dose: 250 mls/hr Documented by: Vancomycin HCl 750 mg/ Sodium (Chloride) 265 mls @ 250 mls/hr IV Q12H [facility] [place] Oxycodone HCl (Oxyir) 5 mg PO Q4H PRN PRN PRN Reason: Pain Score 6-10/10 Last Admin: 09/13/19 20:56 Dose: 5 mg Documented by: Sodium Chloride () 10 - 40 ml IV UD PRN PRN Reason: SALINE FLUSH Last Admin: 09/15/19 05:42 Dose: 10 ml Documented by: Medical Necessity - Tobacco Use Smoking Status: Former smoker Tobacco Use: Cigarettes Assessment/Plan All Active Problems Prepatellar bursitis, left knee (Acute) Left knee septic prepatellar bursitis responding to broad-spectrum IV antibiotics. Continue with rest ice compression elevation for any pain or swelling. Continue pain medications as needed. Continue to work on gentle range of motion left knee. DVT prophylaxis continue bilateral teds and SCDs. Continue weightbearing as tolerated with crutches or a walker. Continue with broad-spectrum IV antibiotics until culture sensitivity results are posted. We do not plan for surgical intervention at this time. Recommend nonsurgical conservative treatment measures. We are signing off orthopedically at this time. Anticipate discharge with an antibiotic regimen as recommended by hospitalist IV versus oral upon posting of cultures and sensitivities. Plan for antibiotic regimen to be managed by patient's primary care upon discharge. We will plan to reassess his knee 3 to 5 days post discharge. Please do not hesitate to contact us with any further orthopedic concerns. Case and findings were discussed and reviewed with Dr. Kendall Watkins
--- NOTE | 2019-09-15 08:02 | PN_ITS ---
Patient Problems: Active and Suspected Problems Prepatellar bursitis, left knee (Acute) Subjective: Microbiology 09/13/19 03:40 Fluid - Synovial (joint) Gram Stain - Final 09/13/19 03:40 Fluid - Synovial (joint) Body Fluid Culture - Final Staphylococcus aureus Objective: GENERAL: cooperative HEENT: Atraumatic; EYES; Anicteric, Normal Conjunctiva NECK; supple, normal thyroid, RESPIRATORY: Diminished to auscultation CARDIOVASCULAR: Regular S1 S2, GI: soft, normoactive bowel sounds, : No Renal angle tenderness; EXTREMITIES: No edema, no clubbing, MUSCULOSKELETAL: L Knee wrapped NEURO: Awake; no lateralizing signs. SKIN: No Rash PSYCH; Flat affect Vitals/I&O's: Vital Signs Temp Pulse Resp BP Pulse Ox 98.6 F 78 18 128/71 H 97 09/15/19 02:40 09/15/19 02:40 09/15/19 02:40 09/15/19 02:40 09/15/19 02:40 Oxygen Delivery Method Room Air Weight: 78.471 kg Body Mass Index (BMI) 24.8 Intake and Output for Last 24 Hours 09/13/19 09/14/19 09/15/19 23:59 23:59 23:59 Intake Total 3185 / 3185 691.25 / 691.25 Balance 3185 / 3185 691.25 / 691.25 Microbiology Past 72 Hours 09/13/19 03:40 Fluid - Synovial (joint) Gram Stain - Final 09/13/19 03:40 Fluid - Synovial (joint) Body Fluid Culture - Final Staphylococcus aureus Laboratory Results 09/14/19 08:18: WBC 10.2, RBC 4.94, Hgb 13.2, Hct 42.8, MCV 86.6, MCH 26.7 L, MCHC 30.8 L, RDW Std Deviation 45.1 H, RDW Coeff of Jonah 14.4, Plt Count 287, MPV 8.6, Immature Gran % (Auto) 0.300, Neut % (Auto) 67.0, Lymph % (Auto) 17.5 L, [facility] % (Auto) 13.5 H, Eos % (Auto) 1.2, Baso % (Auto) 0.5, Absolute Neuts (auto) 6.8, Absolute Lymphs (auto) 1.78, Nucleated RBC % 0 09/15/19 05:40: Vancomycin Trough 4.9 L 09/15/19 05:40: Creatinine 1.21, Estim Creat Clear Calc 62.84, Est GFR (MDRD) Af Amer 77, Est GFR (MDRD) Non-Af 64 Current Medications Aspirin (Aspirin, Baby) 81 mg PO DAILY@0800 [facility] Last Admin: 09/14/19 10:03 Dose: 81 mg Documented by: Etodolac (Lodine) 200 mg PO BIDCM [facility] Last Admin: 09/14/19 17:17 Dose: 200 mg Documented by: Vancomycin IV Pharmacy to Dose (1 ea/ Sodium Chloride) 500 mls @ 250 mls/hr IV PRN PRN; Protocol PRN Reason: Rx to Dose Sodium Chloride () 250 mls @ 15 mls/hr IV .[id number] PRN PRN Reason: Saline Flush Last Infusion: 09/14/19 14:05 Dose: 0 mls/hr Documented by: Vancomycin HCl 1,500 mg/ (Sodium Chloride) 530 mls @ 250 mls/hr IV Q24H [facility] Last Admin: 09/15/19 05:42 Dose: 250 mls/hr Documented by: Vancomycin HCl 750 mg/ Sodium (Chloride) 265 mls @ 250 mls/hr IV Q12H [facility] Oxycodone HCl (Oxyir) 5 mg PO Q4H PRN PRN PRN Reason: Pain Score 6-10/10 Last Admin: 09/13/19 20:56 Dose: 5 mg Documented by: Sodium Chloride () 10 - 40 ml IV UD PRN PRN Reason: SALINE FLUSH Last Admin: 09/15/19 05:42 Dose: 10 ml Documented by: Medical Necessity - Tobacco Use Smoking Status: Former smoker Tobacco Use: Cigarettes Assessment/Plan All Active Problems Prepatellar bursitis, left knee (Acute) Patient is a 63-year-old gentleman admitted with left knee pain diagnosed with prepatellar infected bursa 1. Left knee pain ?Secondary to infected prepatellar bursa. Patient underwent I&D in the emergency department, cultures were sent and started on broad-spectrum antibiotic therapy. Consultation was placed to orthopedics. 09/14/2019; patient seen still complains of some discomfort in the knee. Cultures were sent on admission results still pending. 2. DVT prophylaxis ?low Risk, did encourage early ambulation Inpatient E&M: 14454 Subs Hosp L2
[2019-09-15] MEDS: Etodolac 200 MG Capsule PO (08:17)
[2019-09-15] MEDS: Aspirin 81 MG TAB.CHEW PO (08:17)
[2019-09-15 08:28] VITALS: BP 115/70; PULSE 76; RESP 16; TEMP 36.6; O2SAT 99
[2019-09-15] MEDS: Cefazolin 2 GM in 0.9% Normal Saline 100 ML IV (09:40)
--- NOTE | 2019-09-15 10:11 | PCM.HP.ID ---
Problem List (1) Prepatellar bursitis, left knee Status: Acute Reason for Consult: bursitis Consulted by: Dr. Molina History of Present Illness: The patient is a 63 year old M who presented 09/12 with 7-10 days of L knee progressive pain, swelling, redness. Had been working on eden/carpet at his house, may have had a small scab from a tack just below his knee. Had worsening symptoms, no fever, no drainage. Saw Dr. Kim 09/11, had blood work, got IM abx shot. Sx worsened, came to ED, admitted on vanc after dose of ceftriaxone. Ortho consulted and drain placed. Feeling better. Full ROS performed and neg except as noted above. - Medical History Surgical History: reviewed Allergies/Adverse Reactions: Allergies No Known Allergies Allergy (Verified 09/13/19 02:43) Home Medications: Ambulatory Orders Medication Instructions Recorded Aspirin [Aspirin, Baby] 81 mg PO DAILY@0800 07/14/14 Anastrozole 0.5 mg PO TUFR 09/13/19 Hcg Sldt 1,000 iu SL TUFR 09/13/19 Nabumetone [Relafen] 500 mg PO BID 09/13/19 - Social History SMOKING STATUS:: Former smoker Vital Signs Temp Pulse Resp BP Pulse Ox 98 F 76 16 115/70 99 09/15/19 08:28 09/15/19 08:28 09/15/19 08:28 09/15/19 08:28 09/15/19 08:28 Oxygen Delivery Method Room Air Weight: 78.471 kg Body Mass Index (BMI) 24.8 Microbiology Past 72 Hours 09/13/19 03:40 Gram Stain - Final Fluid - Synovial (joint) Body Fluid Culture - Final Staphylococcus aureus Anaerobic Culture - Preliminary No anaerobic bacteria isolated. Laboratory Tests Past 24 Hrs 09/15/19 09/15/19 05:40 05:40 Creatinine 1.21 Estim Creat Clear Calc 62.84 Est GFR (MDRD) Af Amer 77 Est GFR (MDRD) Non-Af 64 Vancomycin Trough 4.9 L - Other Studies Radiology: [] reviewed Other Studies: [] Route of nutrition/ use of supplements: [] Nutritional Intake: [] IV Site: [] Panda Catheter: [] - Physical Exam General: Alert, Oriented x3, Cooperative, No apparent distress HEENT: Atraumatic, PERRLA, EOMI Neck: Supple, No Nodes Lungs: Clear to auscultation, Normal air movement Cardiovascular: Regular rate, Regular Rhythm Abdomen: Soft, Non Tender, Non-Distended Extremities: No edema Skin: Ulcer/ Wound - leg wrapped IV Site: Peripheral, without redness Musculoskeletal: No Tenderness to Palpation of Joints or Extremities - Assessment/Plan Antibiotics: [] Assessment/Plan: [] Active and Suspected Problems Prepatellar bursitis, left knee (Acute) MSSA L knee prepatellar bursitis - much improved, no fever, normal wbc. Had aspiration done. Change vanc to cefazolin. Ok for d/c home on 12 more days of po duricef. Will write rx. ID followup prn. Will follow, thank you, d/w primary team.
--- NOTE | 2019-09-15 11:03 | DCINST_ITS ---
- Discharge Diagnoses Current Active Problems: Current Active and Chronic Problems Prepatellar bursitis, left knee (Acute) You will use the following diet at home:: No restrictions Call your doctor if you observe: Fever of 101 or Higher, Calf discomfort, Uncontrolled pain Allergies/Adverse Reactions: Allergies No Known Allergies Allergy (Verified 09/13/19 02:43) Medications to take at Discharge Aspirin [Aspirin, Baby] 81 mg PO DAILY@0800 07/14/14 Anastrozole 0.5 mg PO FR 09/13/19 Hcg Sldt 1,000 iu SL FR 09/13/19 Nabumetone [Relafen] 500 mg PO BID 09/13/19 Cefadroxil Hydrate [Duricef] 1,000 mg PO BID #48 cap 09/15/19 The following prescriptions were given: Cefadroxil Hydrate [Duricef] 1,000 mg PO BID #48 cap Transmission Status: Received by [facility] Primary Care Physician: Corey Kim Chi, MD [Primary Care Provider] - Please follow up with your Primary Care Physician in: IN 5-7 DAYS Test Results: Test results from this visit will be discussed in further detail at your follow- up appointment, if applicable. Please Follow Up With: Kendall Watkins MD When: IN 3-5 DAYS Proposed Discharge Date: 09/15/19
--- NOTE | 2019-09-15 11:09 | DS.PCM_ITS ---
Discharge Date and Diagnosis - Problem List Patient Problems: Active and Suspected Problems Prepatellar bursitis, left knee (Acute) Date of Admission: 09/13/19 Date of Discharge: 09/15/19 - Primary Discharge Diagnosis Active and Suspected Problems Prepatellar bursitis, left knee (Acute) Hospital Course and Treatment Summary of Care Provided: Patient is a 63-year-old gentleman admitted with left knee pain diagnosed with prepatellar infected bursa 1. Left knee pain ?Secondary to infected prepatellar bursa. Patient underwent I&D in the emergency department, cultures were sent and started on broad-spectrum antibiotic therapy. Consultation was placed to orthopedics. 09/14/2019; patient seen still complains of some discomfort in the knee. Cultures were sent on admission results still pending. ?09/15/2019; patient cultures came back positive for MSSA consult was placed to infectious disease Dr. Mckeon who recommended discharging patient home on ricef. Patient was to follow-up with Dr. Kendall Watkins orthopedic surgery in 3 to 5 days 2. DVT prophylaxis ?low Risk, did encourage early ambulation Patient Problems: Active and Suspected Problems Prepatellar bursitis, left knee (Acute) Objective: GENERAL: cooperative HEENT: Atraumatic; EYES; Anicteric, Normal Conjunctiva NECK; supple, normal thyroid, RESPIRATORY: Diminished to auscultation CARDIOVASCULAR: Regular S1 S2, GI: soft, normoactive bowel sounds, : No Renal angle tenderness; EXTREMITIES: No edema, no clubbing, MUSCULOSKELETAL: L Knee wrapped NEURO: Awake; no lateralizing signs. SKIN: No Rash PSYCH; Flat affect - Physical Exam Vitals/I&O's: Vital Signs Temp Pulse Resp BP Pulse Ox 98 F 76 16 115/70 99 09/15/19 08:28 09/15/19 08:28 09/15/19 08:28 09/15/19 08:28 09/15/19 08:28 Oxygen Delivery Method Room Air Weight: 78.471 kg Body Mass Index (BMI) 24.8 Intake and Output for Last 24 Hours 09/13/19 09/14/19 09/15/19 23:59 23:59 23:59 Intake Total 3185 / 3185 691.25 / 691.25 662.5 / 662.5 Balance 3185 / 3185 691.25 / 691.25 662.5 / 662.5 Microbiology Past 72 Hours 09/13/19 03:40 Fluid - Synovial (joint) Gram Stain - Final 09/13/19 03:40 Fluid - Synovial (joint) Body Fluid Culture - Final Staphylococcus aureus 09/13/19 03:40 Fluid - Synovial (joint) Anaerobic Culture - Preliminary No anaerobic bacteria isolated. Laboratory Results 09/15/19 05:40: Vancomycin Trough 4.9 L 09/15/19 05:40: Creatinine 1.21, Estim Creat Clear Calc 62.84, Est GFR (MDRD) Af Amer 77, Est GFR (MDRD) Non-Af 64 Current Medications Aspirin (Aspirin, Baby) 81 mg PO DAILY@0800 [facility] Last Admin: 09/15/19 08:17 Dose: 81 mg Documented by: Etodolac (Lodine) 200 mg PO BIDCM [facility] Last Admin: 09/15/19 08:17 Dose: 200 mg Documented by: Sodium Chloride () 250 mls @ 15 mls/hr IV .[id number] PRN PRN Reason: Saline Flush Last Infusion: 09/15/19 10:25 Dose: 15 mls/hr Documented by: Cefazolin Sodium 2 gm/ Sodium (Chloride) 110 mls @ 150 mls/hr IV Q8 [facility] Last Infusion: 09/15/19 10:25 Dose: Infused Documented by: Oxycodone HCl (Oxyir) 5 mg PO Q4H PRN PRN PRN Reason: Pain Score 6-10/10 Last Admin: 09/13/19 20:56 Dose: 5 mg Documented by: Sodium Chloride () 10 - 40 ml IV UD PRN PRN Reason: SALINE FLUSH Last Admin: 09/15/19 05:42 Dose: 10 ml Documented by: Discharge Diet: No Restrictions Call your doctor if you observe: Fever of 101 or Higher, Calf discomfort, Uncontrolled pain Home Medications: Medications to take at Discharge Aspirin [Aspirin, Baby] 81 mg PO DAILY@0800 07/14/14 Anastrozole 0.5 mg PO TUFR 09/13/19 Hcg Sldt 1,000 iu SL TUFR 09/13/19 Nabumetone [Relafen] 500 mg PO BID 09/13/19 Cefadroxil Hydrate [Duricef] 1,000 mg PO BID #48 cap 09/15/19 Following Prescrptions Were Given to Patient: Cefadroxil Hydrate [Duricef] 1,000 mg PO BID #48 cap Transmission Status: Received by [facility] Primary Care Physician: Corey Kim Chi, MD [Primary Care Provider] - Please follow up with your Primary Care Physician in: IN 5-7 DAYS Please Follow Up With: Kendall Watkins MD When: IN 3-5 DAYS Disposition: Home Minutes spent on discharge:: 40 Patient Condition:: Stable Medical Necessity - Tobacco Use Smoking Status: Former smoker Tobacco Use: Cigarettes Meaningful Use Info Meaningful Use Diagnoses (Choose all that apply): None applicable Inpatient E&M: 93036 Disch Hosp
== END 2019-09-15 12:53 | disposition home or self-care (01) | DRG 502 ==
LOC: ED 03:14 → MS3 05:25
PROVIDERS: Physician Assistant; Admitting Provider Family Medicine; Emergency Provider Emergency Medicine; PCP Family Medicine Geriatric Medicine; Visit Provider Internal Medicine
DX: M71.162 Other infective bursitis, left knee (principal); B95.61 Methicillin susceptible Staphylococcus aureus infection as the cause of diseases classified elsewhere
CPT/HCPCS: 36415; 73564; 80048; 80202; 82565; 85025; 85652; 86140; 87070; 87075; 87077; 87186; 87205; 93970; 99285; J7040; J7050; A4216

== ENCOUNTER → 2020-05-03 14:09 | Outpatient (CLI) | payer MEDICARE, OTHER, SELFPAY ==
[2019-09-13 05:46] VITALS: BMI 24.8
[2020-05-03 15:34] LABS: PSA,Total- Diagnostic 2.75 ng/mL (0.0-4.0)
== END ==
PROVIDERS: PCP Family Medicine Geriatric Medicine; Visit Provider Urology
DX: R97.20 Elevated prostate specific antigen [PSA] (principal)
CPT/HCPCS: 36415; 84153

== ENCOUNTER → 2020-07-16 09:34 | Outpatient (CLI) | payer MEDICARE, OTHER, SELFPAY ==
[2019-09-13 05:46] VITALS: BMI 24.8
[2020-07-16 12:51] LABS: Absolute Lymphocyte Count 2.04 X10^3/uL (0.83-4.51); Absolute Neutrophil Count 2.6 X10^3/uL (2.0-7.7); Basophil# 0.07 X10^3/uL; Basophil% 1.3 % (0-1); Eosinophils% 1.8 % (0-5); Hematocrit 54.9 % (40-54); Hemoglobin 17.2 g/dL (13.0-16.5); Lymphocyte # 2.04 X10^3/ul (4.0); Lymphocyte % 36.4 % (19-41); Mean Corp Hgb Conc 31.3 g/dL (32-36); Mean Corpuscular Hgb 27.5 pg (27.0-32.0); Mean Corpuscular Volume 87.8 fL (80-94); Mean Platelet Vol. 10.2 fl (6.2-12.0); Monocyte# 0.74 X10^3/uL; Monocyte% 13.2 % (0-10); NRBC Flagged by Analyzer 0 % (0-5); Neutrophil # 2.63 X10^3/uL (2.7-7.7); Neutrophil % 46.9 % (47-70); Platelet Count 220 K/mm3 (150-450); RBC Distribution Width CV 14.6 % (11.6-14.6); RBC Distribution Width SD 47.7 fl (35.1-43.9); Red Blood Count 6.25 M/mm3 (4.6-6.2); White Blood Count 5.6 K/mm3 (4.4-11.0)
[2020-07-16 13:07] LABS: Vitamin D,25 Hydroxy 107.1 ng/mL
[2020-07-16 13:19] LABS: ALB/GLOB Ratio 1.3 RATIO (0.9-2.4); AST(SGOT) 22 U/L (15-37); Alanine Aminotransfer ALT/SGPT 27 U/L (16-61); Albumin, Serum 4.2 g/dL (3.2-5.0); Alkaline Phosphatase 60 U/L (45-117); Anion Gap 7 (5-15); BUN 14 mg/dL (7-18); BUN/Creat Ratio 9.2 RATIO (10-20); Calcium,Total 8.8 mg/dL (8.5-10.1); Chloride 102 mmol/L (98-107); Creatinine, Serum 1.53 mg/dL (0.70-1.30); EST Glomerular Filtration Rate 49 mL/min (>60); Est Glom Filt Rate - Afr Amer 59 mL/min (>60); Globulin 3.2 g/dL (2.2-4.2); Glucose 81 mg/dL (74-106); PSA,Total - Annual Screen 3.86 ng/mL (0.00-4.00); Potassium 4.3 mmol/L (3.5-5.1); Protein, Total 7.4 g/dL (6.4-8.2); Sodium Level 138 mmol/L (136-145); Thyroid Stim Hormone (TSH) 1.38 uIU/mL (0.358-3.74)
== END ==
PROVIDERS: PCP Family Medicine Geriatric Medicine; Visit Provider Family Medicine Geriatric Medicine
DX: E55.9 Vitamin D deficiency, unspecified (principal); F52.8 Other sexual dysfunction not due to a substance or known physiological condition; R53.83 Other fatigue; Z12.5 Encounter for screening for malignant neoplasm of prostate
CPT/HCPCS: 80053; 82306; 84153; 84403; 84443; 85025; G0103

== ENCOUNTER → 2021-04-30 09:55 | Outpatient (CLI) | payer MEDICARE, OTHER, SELFPAY ==
[2021-04-30 10:49] LABS: Absolute Lymphocyte Count 2.13 X10^3/uL (0.83-4.51); Absolute Neutrophil Count 3.2 X10^3/uL (2.0-7.7); Basophil# 0.07 X10^3/uL; Basophil% 1.1 % (0-1); Eosinophils% 1.6 % (0-5); Hematocrit 45.3 % (40-54); Hemoglobin 14.1 g/dL (13.0-16.5); Lymphocyte # 2.13 X10^3/ul (0.83-4.51); Lymphocyte % 33.5 % (19-41); Mean Corp Hgb Conc 31.1 g/dL (32-36); Mean Corpuscular Hgb 25.6 pg (27.0-32.0); Mean Corpuscular Volume 82.4 fL (80-94); Mean Platelet Vol. 9.3 fl (6.2-12.0); Monocyte# 0.88 X10^3/uL; Monocyte% 13.8 % (0-10); NRBC Flagged by Analyzer 0 % (0-5); Neutrophil # 3.15 X10^3/uL (2.7-7.7); Neutrophil % 49.5 % (47-70); Platelet Count 278 K/mm3 (150-450); RBC Distribution Width CV 14.6 % (11.6-14.6); RBC Distribution Width SD 43.4 fl (35.1-43.9); White Blood Count 6.4 K/mm3 (4.4-11.0)
[2021-04-30 11:26] LABS: ALB/GLOB Ratio 1.2 RATIO (0.9-2.4); AST(SGOT) 17 U/L (15-37); Alanine Aminotransfer ALT/SGPT 18 U/L (16-61); Albumin, Serum 3.7 g/dL (3.2-5.0); Alkaline Phosphatase 50 U/L (45-117); Anion Gap 6 (5-15); BUN 14 mg/dL (7-18); BUN/Creat Ratio 10.1 RATIO (10-20); Calcium,Total 8.6 mg/dL (8.5-10.1); Chloride 107 mmol/L (98-107); Creatinine, Serum 1.39 mg/dL (0.70-1.30); EST Glomerular Filtration Rate 54 mL/min (>60); Est Glom Filt Rate - Afr Amer 65 mL/min (>60); Globulin 3.2 g/dL (2.2-4.2); Glucose 95 mg/dL (74-106); PSA,Total- Diagnostic 4.13 ng/mL (0.0-4.0); Protein, Total 6.9 g/dL (6.4-8.2); Sodium Level 139 mmol/L (136-145); Thyroid Stim Hormone (TSH) 1.83 uIU/mL (0.358-3.74)
[2021-04-30 11:28] LABS: Vitamin D,25 Hydroxy 96.5 ng/mL
== END ==
PROVIDERS: PCP Family Medicine Geriatric Medicine; Referring Provider Urology; Visit Provider Urology
DX: E55.9 Vitamin D deficiency, unspecified (principal); R97.20 Elevated prostate specific antigen [PSA]; R53.83 Other fatigue; B34.2 Coronavirus infection, unspecified; F52.8 Other sexual dysfunction not due to a substance or known physiological condition; Z12.5 Encounter for screening for malignant neoplasm of prostate
CPT/HCPCS: 36415; 80053; 82306; 84153; 84403; 84443; 85025; 86769

== ENCOUNTER 2021-07-17 08:54 | Outpatient (CLI) | payer MEDICARE, OTHER, SELFPAY ==
[2021-07-17 12:10] LABS: Absolute Lymphocyte Count 1.74 X10^3/uL (0.83-4.51); Absolute Neutrophil Count 2.3 X10^3/uL (2.0-7.7); Basophil# 0.08 X10^3/uL; Basophil% 1.6 % (0-1); Eosinophil# 0.14 X10^3/uL; Eosinophils% 2.8 % (0-5); Hematocrit 46.6 % (40-54); Hemoglobin 14.2 g/dL (13.0-16.5); Lymphocyte # 1.74 X10^3/ul (0.83-4.51); Lymphocyte % 34.6 % (19-41); Mean Corp Hgb Conc 30.5 g/dL (32-36); Mean Corpuscular Hgb 24.6 pg (27.0-32.0); Mean Corpuscular Volume 80.8 fL (80-94); Mean Platelet Vol. 10.4 fl (6.2-12.0); Monocyte# 0.79 X10^3/uL; Monocyte% 15.7 % (0-10); NRBC Flagged by Analyzer 0 % (0-5); Neutrophil # 2.27 X10^3/uL (2.7-7.7); Neutrophil % 45.1 % (47-70); Platelet Count 313 K/mm3 (150-450); RBC Distribution Width CV 16.2 % (11.6-14.6); RBC Distribution Width SD 47.2 fl (35.1-43.9); Red Blood Count 5.77 M/mm3 (4.6-6.2)
[2021-07-17 12:34] LABS: Vitamin D,25 Hydroxy 125.8 ng/mL
[2021-07-17 12:40] LABS: ALB/GLOB Ratio 1.4 RATIO (0.9-2.4); AST(SGOT) 20 U/L (15-37); Alanine Aminotransfer ALT/SGPT 23 U/L (16-61); Alkaline Phosphatase 55 U/L (45-117); Anion Gap 7 (5-15); BUN 12 mg/dL (7-18); Calcium,Total 8.9 mg/dL (8.5-10.1); Chloride 103 mmol/L (98-107); Creatinine, Serum 1.72 mg/dL (0.70-1.30); EST Glomerular Filtration Rate 42 mL/min (>60); Est Glom Filt Rate - Afr Amer 51 mL/min (>60); Globulin 2.9 g/dL (2.2-4.2); Glucose 86 mg/dL (74-106); Potassium 4.2 mmol/L (3.5-5.1); Protein, Total 6.9 g/dL (6.4-8.2); Sodium Level 138 mmol/L (136-145); Thyroid Stim Hormone (TSH) 2.26 uIU/mL (0.358-3.74)
== END 2021-07-17 23:59 | disposition short-term general hospital (02) ==
LOC: POLAB3 09:08
PROVIDERS: PCP Family Medicine Geriatric Medicine; Visit Provider Family Medicine Geriatric Medicine
DX: E55.9 Vitamin D deficiency, unspecified (principal); F52.8 Other sexual dysfunction not due to a substance or known physiological condition; R53.83 Other fatigue; Z12.5 Encounter for screening for malignant neoplasm of prostate
CPT/HCPCS: 36415; 80053; 82306; 84153; 84403; 84443; 85025; G0103

== ENCOUNTER 2021-07-23 09:27 | Outpatient (CLI) | payer MEDICARE, OTHER, SELFPAY ==
[2021-07-23 10:08] LABS: Absolute Lymphocyte Count 1.51 X10^3/uL (0.83-4.51); Absolute Neutrophil Count 2.4 X10^3/uL (2.0-7.7); Basophil# 0.07 X10^3/uL; Basophil% 1.5 % (0-1); Eosinophil# 0.11 X10^3/uL; Eosinophils% 2.3 % (0-5); Hematocrit 43.1 % (40-54); Hemoglobin 13.1 g/dL (13.0-16.5); Lymphocyte # 1.51 X10^3/ul (0.83-4.51); Lymphocyte % 32.1 % (19-41); Mean Corp Hgb Conc 30.4 g/dL (32-36); Mean Corpuscular Hgb 24.1 pg (27.0-32.0); Mean Corpuscular Volume 79.4 fL (80-94); Mean Platelet Vol. 9.6 fl (6.2-12.0); Monocyte# 0.66 X10^3/uL; NRBC Flagged by Analyzer 0 % (0-5); Neutrophil # 2.35 X10^3/uL (2.7-7.7); Neutrophil % 49.9 % (47-70); Platelet Count 243 K/mm3 (150-450); RBC Distribution Width CV 16.6 % (11.6-14.6); RBC Distribution Width SD 47.1 fl (35.1-43.9); Red Blood Count 5.43 M/mm3 (4.6-6.2); White Blood Count 4.7 K/mm3 (4.4-11.0)
[2021-07-23 10:52] LABS: Vitamin D,25 Hydroxy 124.6 ng/mL
[2021-07-23 10:53] LABS: ALB/GLOB Ratio 1.3 RATIO (0.9-2.4); AST(SGOT) 18 U/L (15-37); Alanine Aminotransfer ALT/SGPT 19 U/L (16-61); Albumin, Serum 3.6 g/dL (3.2-5.0); Alkaline Phosphatase 48 U/L (45-117); Anion Gap 4 (5-15); BUN 12 mg/dL (7-18); BUN/Creat Ratio 8.2 RATIO (10-20); Calcium,Total 8.6 mg/dL (8.5-10.1); Chloride 108 mmol/L (98-107); Creatinine, Serum 1.47 mg/dL (0.70-1.30); EST Glomerular Filtration Rate 51 mL/min (>60); Est Glom Filt Rate - Afr Amer 61 mL/min (>60); Globulin 2.7 g/dL (2.2-4.2); Glucose 98 mg/dL (74-106); PSA,Total- Diagnostic 4.49 ng/mL (0.0-4.0); Potassium 4.3 mmol/L (3.5-5.1); Protein, Total 6.3 g/dL (6.4-8.2); Sodium Level 140 mmol/L (136-145); Thyroid Stim Hormone (TSH) 1.06 uIU/mL (0.358-3.74)
== END 2021-07-23 23:59 | disposition short-term general hospital (02) ==
LOC: LAB 09:34
PROVIDERS: PCP Family Medicine Geriatric Medicine; Visit Provider Family Medicine Geriatric Medicine
DX: E55.9 Vitamin D deficiency, unspecified (principal); F52.8 Other sexual dysfunction not due to a substance or known physiological condition; R53.83 Other fatigue; R97.20 Elevated prostate specific antigen [PSA]
CPT/HCPCS: 36415; 80053; 82306; 84153; 84403; 84443; 85025

== ENCOUNTER 2021-09-05 16:52 | Outpatient (CLI) | payer MEDICARE, OTHER, SELFPAY ==
--- NOTE | 2021-09-05 | IMM_PTH ---
PATIENT: BETH KESSLER LOC: [facility] U#:[id number] AGE/SX: 65/M ROOM: RE09/05/[address]: Dr. Billy Reyes MD : 1955 BED: DIS: 09/05/2021 SPEC #: [id number] RECD: 09/09/21 13:47 STATUS: PHIL REQ #: [id number] ALEXIS: 09/05/21 00:[address]: Billy Reyes DEPT: IMMUNOHISTOCHEMISTRY RECD BY: Judit Leroy ENTERED: 09/09/21 13:48 SP TYPE: IMMUNO OTHR DR: Dr. Corey Kmi MD Tissues: A - PROSTATE RIGHT Procedures: P40 (add) 34BE12 (initial) PHYSICIAN & INSTITUTION [place] [address] SPECIMEN INFORMATION: Tissue Source: A - Right prostate, apex, core biopsy Clinical Info: Elevated PSA Specimen Number: [id number] CPT code: 27788, 04081 METHODOLOGY: Deparaffinized sections of prefer/formalin-fixed tissue or PAP/DQ stained slides are incubated with monoclonal/polyclonal antibodies/oligonucleotide probes. Localization is made via biotin free immunoperoxidase method. Appropriate controls are performed and reacted as expected. Results on target cell population are indicated in the following table: RESULTS: ANTIBODY / CLONE RESULT Block A P40 (BC28) negative 34BE12 (34BE12) negative These tests were developed and their performance characteristics determined by [facility]. They may not have been cleared or approved by the U.S. Food and Drug Administration. The FDA has determined that such clearance or approval is not necessary. The above immunohistochemical/dualISH markers are ordered and reviewed by the Pathologist. INTERPRETATION: A. Right prostate, apex, core biopsy: Adenocarcinoma. SJ:rickey 09/10/2021
--- NOTE | 2021-09-05 08:00 | PROSBIL_PTH ---
PATIENT: BETH KESSLER LOC: [facility] U#:[id number] AGE/SX: 65/M ROOM: RE09/05/[address]: Dr. Billy Reyes MD : 1955 BED: DIS: 09/05/2021 SPEC #: [id number] RECD: 09/05/21 16:50 STATUS: PHIL ZAVALA #: [id number] ALEXIS: 09/05/21 08:[address]: Billy Reyes DEPT: SURGICAL PATHOLOGY RECD BY: Hermila Hannon ENTERED: 09/06/21 09:36 SP TYPE: PROST BX KEIRA DR: Dr. Corey Kim MD Tissues: A - PROSTATE RIGHT B - PROSTATE RIGHT C - PROSTATE RIGHT D - PROSTATE LEFT E - PROSTATE LEFT F - PROSTATE LEFT Procedures: PROSTATE BX HEADER OPERATION: Prostate biopsy PRE-OP DIAGNOSIS: Elevated PSA TISSUE SUBMITTED: A - Right apex, B - Right mid, C - Right base, D - Left apex, E - Left mid, F - Left base MICROSCOPIC DIAGNOSIS A. Right prostate, apex, core biopsy: Prostatic adenocarcinoma. Krishna grade: 3+3=6 Number of cores involved: 1/ Proportion of tissue involved: ~20% Perineural invasion: Not identified. Greatest tumor length: 0.4 cm, discontinuous See comment. B. Right prostate, mid, core biopsy: Prostatic tissue, negative for malignancy. C. Right prostate, base, core biopsy: Prostatic tissue, negative for malignancy. D. Left prostate, apex, core biopsy: Prostatic tissue, negative for malignancy. Focal atrophy and chronic inflammation. E. Left prostate, mid, core biopsy: Prostatic tissue, negative for malignancy. F. Left prostate, base, core biopsy: Focal high-grade prostatic intraepithelial neoplasia (HGPIN). See comment. SJ:rg 09/09/2021 COMMENT A. Immunohistochemistry ([id number]) supports the above diagnosis. Please make reference to previous specimen ([id number]) right prostate, base, core biopsy with diagnosis of ?focal high-grade prostatic intraepithelial neoplasia.? Case has been reviewed in consultation with Dr. Fraser who concurs with the above diagnosis. IDC:AM MICROSCOPIC DESCRIPTION Slides are reviewed. GROSS DESCRIPTION A - Received is one container designated prostate, right apex. The specimen consists of one elongated fragment of light cain-white soft tissue measuring 1.5 cm in length and 0.1 cm in diameter. The specimen is totally submitted in one cassette. B - Received is one container designated prostate, right mid. The specimen consists of two elongated fragments of light cain-white soft tissue each measuring 2 cm in length and 0.1 cm in diameter. The specimen is totally submitted in one cassette. C - Received is one container designated prostate, right base. The specimen consists of two elongated fragments of light cain-white soft tissue each measuring 1.5 cm in length and 0.1 cm in diameter. The specimen is totally submitted in one cassette. D - Received is one container designated prostate, left apex. The specimen consists of one elongated fragment of light cain-white soft tissue measuring 1.5 cm in length and 0.1 cm in diameter. The specimen is totally submitted in one cassette. E - Received is one container designated prostate, left mid. The specimen consists of two elongated fragments of light cain-white soft tissue each measuring 1.5 cm in length and 0.1 cm in diameter. The specimen is totally submitted in one cassette. F - Received is one container designated prostate, left base. The specimen consists of two elongated fragments of light cain-white soft tissue each measuring 1.5 cm in length and 0.1 cm in diameter. The specimen is totally submitted in one cassette. / AM:rickey 09/06/2021 TC:0 [facility]: [id number]
== END 2021-09-05 23:59 | disposition home or self-care (01) ==
LOC: LABSPEC 16:54
PROVIDERS: PCP Family Medicine Geriatric Medicine; Visit Provider Urology
DX: R97.20 Elevated prostate specific antigen [PSA] (principal)
CPT/HCPCS: 88305; 88341; 88342; G0416

== ENCOUNTER 2021-09-17 11:59 | Outpatient (CLI) | payer MEDICARE, OTHER, SELFPAY ==
[2021-09-17 13:08] LABS: Protein, Urine (Random) 32.3 mg/dL (<11.9); Protein:Creat Ratio 139 mg/g CRE (0-200)
--- NOTE | 2021-09-19 14:23 | US_ITS ---
STUDY: RENAL ULTRASOUND - COMPLETE REASON FOR EXAM: Male, 65 years old. CKD3 TECHNIQUE: Ultrasound evaluation of the kidneys was performed with real-time and static venegas-scale imaging. COMPARISON: None. FINDINGS: RIGHT KIDNEY: Normal location of the right kidney, which is normal in size. The right kidney measures 10.3x4.9 cm. The renal cortex measures in cm: 1. There is a normal cortex of the right kidney. There is a cyst of the right kidney measuring in mm: 10/10. There are no right renal calculi. There is no right hydronephrosis. DISTAL RIGHT URETER: There is non-visualization of the distal right ureter. There is no demonstrated right ureterovesical junction calculus. There is no demonstrated right ureteral jet. LEFT KIDNEY: Normal location of the left kidney, which is normal in size. The left kidney measures 10.3x4.8 cm. The renal cortex measures in cm: 1.5. There is a normal cortex of the left kidney. There is a cyst of the left kidney measuring in mm: 13 x 12. There are no left renal calculi. There is no left hydronephrosis. DISTAL LEFT URETER: There is non-visualization of the distal left ureter. There is no demonstrated left ureterovesical junction calculus. There is no demonstrated left ureteral jet. AORTA: There is obscuration of the abdominal aorta by overlying bowel gas I.V.C.: It is not visualized. There is too much overlying bowel gas. BLADDER: The distended urinary bladder has a volume in cc of 16. There is a normal wall thickness of the distended urinary bladder. There is no demonstrated mass within the urinary bladder. There are no demonstrated bladder calculi. US/Kidney and Bladder IMPRESSION: Bilateral renal cyst are no follow-up required. Electronically Signed: Jenaro Cline MD at 20:13 EDT ,
== END 2021-09-17 23:59 | disposition home or self-care (01) ==
PROVIDERS: PCP Family Medicine Geriatric Medicine; Referring Provider Internal Medicine Nephrology; Visit Provider Internal Medicine Nephrology
DX: N18.32 Chronic kidney disease, stage 3b (principal)
CPT/HCPCS: 76770; 82570; 84156

== ENCOUNTER → 2021-11-12 | Outpatient (CLI) | payer MEDICARE, OTHER, SELFPAY ==
[2021-11-12 13:09] LABS: PTHIN 43.3 pg/mL (18.4-80.1)
[2021-11-12 13:12] LABS: Albumin, Serum 3.9 g/dL (3.2-5.0); BUN 16 mg/dL (7-18); BUN/Creat Ratio 10.6 RATIO (10-20); Calcium,Total 9.2 mg/dL (8.5-10.1); Chloride 105 mmol/L (98-107); Creatinine, Serum 1.51 mg/dL (0.70-1.30); EST Glomerular Filtration Rate 49 mL/min (>60); Est Glom Filt Rate - Afr Amer 59 mL/min (>60); Glucose 96 mg/dL (74-106); Phosphorus 2.4 mg/dL (2.5-4.9); Potassium 4.7 mmol/L (3.5-5.1); Sodium Level 139 mmol/L (136-145); Vitamin D,25 Hydroxy 94.1 ng/mL
== END | disposition home or self-care (01) ==
LOC: POLAB3 11:26
PROVIDERS: PCP Family Medicine Geriatric Medicine; Visit Provider Internal Medicine Nephrology
DX: N18.32 Chronic kidney disease, stage 3b (principal); E55.9 Vitamin D deficiency, unspecified
CPT/HCPCS: 36415; 80069; 82306; 83970

== ENCOUNTER → 2022-03-11 | Outpatient (CLI) | payer MEDICARE, OTHER, SELFPAY ==
[2022-03-11 11:13] LABS: PSA,Total- Diagnostic 5.54 ng/mL (0.0-4.0)
== END | disposition home or self-care (01) ==
PROVIDERS: PCP Family Medicine Geriatric Medicine; Referring Provider Urology; Visit Provider Urology
DX: C61 Malignant neoplasm of prostate (principal)
CPT/HCPCS: 36415; 84153

== ENCOUNTER → 2022-05-13 | Outpatient (CLI) | payer MEDICARE, OTHER, SELFPAY ==
[2022-05-13 12:56] LABS: Albumin, Serum 3.9 g/dL (3.2-5.0); BUN 11 mg/dL (7-18); BUN/Creat Ratio 9.1 RATIO (10-20); Calcium,Total 9.1 mg/dL (8.5-10.1); Chloride 105 mmol/L (98-107); Creatinine, Serum 1.21 mg/dL (0.70-1.30); EST Glomerular Filtration Rate 63 mL/min (>60); Est Glom Filt Rate - Afr Amer 77 mL/min (>60); Glucose 109 mg/dL (74-106); Phosphorus 2.2 mg/dL (2.5-4.9); Potassium 4.3 mmol/L (3.5-5.1); Sodium Level 141 mmol/L (136-145)
== END | disposition home or self-care (01) ==
LOC: LAB 11:21
PROVIDERS: PCP Family Medicine Geriatric Medicine; Visit Provider Internal Medicine Nephrology
DX: N18.32 Chronic kidney disease, stage 3b (principal)
CPT/HCPCS: 36415; 80069

== ENCOUNTER → 2022-07-23 | Outpatient (CLI) | payer MEDICARE, OTHER, SELFPAY ==
[2022-07-23 13:10] LABS: Absolute Neutrophil Count 2.1 X10^3/uL (2.0-7.7); Basophil# 0.06 X10^3/uL; Basophil% 1.2 % (0-1); Eosinophil# 0.15 X10^3/uL; Hematocrit 45.4 % (40-54); Hemoglobin 15.3 g/dL (13.0-16.5); Lymphocyte % 40.5 % (19-41); Mean Corp Hgb Conc 33.7 g/dL (32-36); Mean Corpuscular Hgb 30.7 pg (27.0-32.0); Mean Platelet Vol. 9.8 fl (6.2-12.0); Monocyte# 0.59 X10^3/uL; Monocyte% 11.9 % (0-10); NRBC Flagged by Analyzer 0 % (0-5); Neutrophil # 2.13 X10^3/uL (2.7-7.7); Neutrophil % 43.2 % (47-70); Platelet Count 226 K/mm3 (150-450); RBC Distribution Width CV 13.3 % (11.6-14.6); RBC Distribution Width SD 44.5 fl (35.1-43.9); Red Blood Count 4.99 M/mm3 (4.6-6.2); White Blood Count 4.9 K/mm3 (4.4-11.0)
[2022-07-23 13:24] LABS: Vitamin D,25 Hydroxy 79.8 ng/mL
[2022-07-23 13:31] LABS: ALB/GLOB Ratio 1.3 RATIO (0.9-2.4); AST(SGOT) 17 U/L (15-37); Alanine Aminotransfer ALT/SGPT 25 U/L (16-61); Albumin, Serum 3.8 g/dL (3.2-5.0); Alkaline Phosphatase 62 U/L (45-117); Anion Gap 8 (5-15); BUN 16 mg/dL (7-18); BUN/Creat Ratio 13.7 RATIO (10-20); Calcium,Total 8.8 mg/dL (8.5-10.1); Chloride 104 mmol/L (98-107); Creatinine, Serum 1.17 mg/dL (0.70-1.30); EST Glomerular Filtration Rate 66 mL/min (>60); Est Glom Filt Rate - Afr Amer 80 mL/min (>60); Glucose 85 mg/dL (74-106); PSA,Total - Annual Screen 5.85 ng/mL (0.00-4.00); Potassium 4.2 mmol/L (3.5-5.1); Protein, Total 6.8 g/dL (6.4-8.2); Sodium Level 141 mmol/L (136-145); Thyroid Stim Hormone (TSH) 1.98 uIU/mL (0.358-3.74)
== END | disposition home or self-care (01) ==
LOC: POLAB3 08:59
PROVIDERS: PCP Family Medicine Geriatric Medicine; Visit Provider Family Medicine Geriatric Medicine
DX: R53.83 Other fatigue (principal); E55.9 Vitamin D deficiency, unspecified; Z12.5 Encounter for screening for malignant neoplasm of prostate
CPT/HCPCS: 36415; 80053; 82306; 84153; 84443; 85025; G0103

== ENCOUNTER → 2022-09-11 | Outpatient (CLI) | payer MEDICARE, OTHER, SELFPAY ==
[2022-09-11 09:41] LABS: PSA,Total- Diagnostic 5.41 ng/mL (0.0-4.0)
== END | disposition home or self-care (01) ==
LOC: LAB 09:13
PROVIDERS: PCP Family Medicine Geriatric Medicine; Referring Provider Urology; Visit Provider Urology
DX: R97.20 Elevated prostate specific antigen [PSA] (principal)
CPT/HCPCS: 36415; 84153

== ENCOUNTER → 2022-10-31 | Outpatient (CLI) | payer MEDICARE, OTHER, SELFPAY | END | disposition home or self-care (01) | LOC: LABSPEC 15:45 | PROVIDERS: PCP Family Medicine Geriatric Medicine; Referring Provider Otolaryngology; Visit Provider Otolaryngology | DX: J32.8 Other chronic sinusitis (principal) | CPT/HCPCS: 87070; 87205 ==

== ENCOUNTER → 2023-01-27 | Outpatient (CLI) | payer MEDICARE, OTHER, SELFPAY ==
[2023-01-27 13:25] LABS: Protein, Urine (Random) 9.8 mg/dL (<11.9); Protein:Creat Ratio 46 mg/g CRE (0-200)
[2023-01-27 13:38] LABS: Albumin, Serum 3.8 g/dL (3.2-5.0); BUN 15 mg/dL (7-18); BUN/Creat Ratio 11.6 RATIO (10-20); Calcium,Total 8.9 mg/dL (8.5-10.1); Chloride 107 mmol/L (98-107); Creatinine, Serum 1.29 mg/dL (0.70-1.30); EST Glomerular Filtration Rate 59 mL/min (>60); Est Glom Filt Rate - Afr Amer 71 mL/min (>60); Glucose 122 mg/dL (74-106); Phosphorus 3.1 mg/dL (2.5-4.9); Potassium 4.5 mmol/L (3.5-5.1); Sodium Level 139 mmol/L (136-145)
== END | disposition home or self-care (01) ==
LOC: LAB 12:51
PROVIDERS: PCP Family Medicine Geriatric Medicine; Referring Provider Internal Medicine Nephrology; Visit Provider Internal Medicine Nephrology
DX: N18.32 Chronic kidney disease, stage 3b (principal)
CPT/HCPCS: 36415; 80069; 82570; 84156

== ENCOUNTER → 2023-05-11 | Outpatient (CLI) | payer MEDICARE, OTHER, SELFPAY ==
[2023-05-11 12:44] LABS: PSA,Total- Diagnostic 5.27 ng/mL (0.0-4.0)
== END | disposition home or self-care (01) ==
LOC: LAB 11:36
PROVIDERS: PCP Family Medicine Geriatric Medicine; Referring Provider Registered Nurse; Visit Provider Registered Nurse
DX: C61 Malignant neoplasm of prostate (principal)
CPT/HCPCS: 36415; 84153

== ENCOUNTER → 2023-07-30 | Outpatient (CLI) | payer MEDICARE, OTHER, SELFPAY ==
--- OUTSIDE RECORDS SUMMARY | 2023-07-30 09:31 | XMS RPT_ITS | CCD ---
Author Name Unknown Address [address] [place] [address] Organization [facility] Care Team Providers Care [employer]ight [employer]ker Name Role Phone JUAN ZEPEDA Attending Unavailable Allergies Allergy Classification Reported Allergen(s) Allergy Type Date of Onset Reaction(s) Facility (1 source) ALLERGIES NOT ON FILE; Translations: [ALLERGIES NOT ON FILE] Propensity to adverse reactions (disorder) [facility] 3 Repository Encounters Encounter Date Encounter Type Care Provider Facility Start: 11-18-2022 End: 11-18-2022 ambulatory [facility] Ambulatory Summary Purpose Family History No Family History Records Found Advance Directives No Advanced Directives Records Found Additional Source Comments (unrecognized sect ion and content) No Status Records Found INFORMATION SOURCE (unrecogn ized section and content) FOR RECORDS PERTAINING TO PATIENTS WHO ARE OR HAVE BEEN ENROLLED IN A CHEMICAL DEPENDENCY/SUBSTANCEABUSE PROGRAM, SOME INFORMATION MAY BE OMITTED. This clinical summary was aggregated from multiple sources. Caution should be exercised in using it in the provision of clinical care. This summary normalizes information from multiple sources, and as a consequence, information in this document may materially change the coding, format and clinical context of patient data. In addition, data may be omitted in some cases. CLINICAL DECISIONS SHOULD BE BASED ON THE PRIMARY CLINICAL RECORDS. [employer] provides no warranty or guarantee of the accuracy or completeness of information in this document.
[2023-07-30 10:35] LABS: Absolute Lymphocyte Count 1.71 X10^3/uL (0.83-4.51); Absolute Neutrophil Count 3.7 X10^3/uL (2.0-7.7); Basophil# 0.05 X10^3/uL; Basophil% 0.8 % (0-1); Eosinophil# 0.16 X10^3/uL; Eosinophils% 2.5 % (0-5); Hematocrit 46.6 % (40-54); Lymphocyte # 1.71 X10^3/ul (0.83-4.51); Lymphocyte % 26.6 % (19-41); Mean Corp Hgb Conc 32.2 g/dL (32-36); Mean Corpuscular Hgb 29.6 pg (27.0-32.0); Mean Corpuscular Volume 91.9 fL (80-94); Mean Platelet Vol. 9.6 fl (6.2-12.0); Monocyte# 0.81 X10^3/uL; Monocyte% 12.6 % (0-10); NRBC Flagged by Analyzer 0 % (0-5); Neutrophil # 3.67 X10^3/uL (2.7-7.7); Neutrophil % 57.2 % (47-70); Platelet Count 242 K/mm3 (150-450); RBC Distribution Width CV 13.1 % (11.6-14.6); RBC Distribution Width SD 44.3 fl (35.1-43.9); Red Blood Count 5.07 M/mm3 (4.6-6.2); White Blood Count 6.4 K/mm3 (4.4-11.0)
[2023-07-30 10:48] LABS: Vitamin D,25 Hydroxy 76.9 ng/mL
[2023-07-30 11:44] LABS: ALB/GLOB Ratio 1.4 RATIO (0.9-2.4); AST(SGOT) 9 U/L (15-37); Alanine Aminotransfer ALT/SGPT 23 U/L (16-61); Albumin, Serum 4.2 g/dL (3.2-5.0); Alkaline Phosphatase 57 U/L (45-117); Anion Gap 5 (5-15); BUN 13 mg/dL (7-18); BUN/Creat Ratio 11.3 RATIO (10-20); Calcium,Total 9.3 mg/dL (8.5-10.1); Chloride 106 mmol/L (98-107); Creatinine, Serum 1.15 mg/dL (0.70-1.30); EST Glomerular Filtration Rate 67 mL/min (>60); Est Glom Filt Rate - Afr Amer 81 mL/min (>60); Globulin 2.9 g/dL (2.2-4.2); Glucose 100 mg/dL (74-106); Potassium 3.9 mmol/L (3.5-5.1); Protein, Total 7.1 g/dL (6.4-8.2); Sodium Level 137 mmol/L (136-145); Thyroid Stim Hormone (TSH) 1.42 uIU/mL (0.358-3.74)
== END | disposition home or self-care (01) ==
PROVIDERS: PCP Family Medicine Geriatric Medicine; Visit Provider Family Medicine Geriatric Medicine
DX: Z12.5 Encounter for screening for malignant neoplasm of prostate (principal); R53.83 Other fatigue; E55.9 Vitamin D deficiency, unspecified
CPT/HCPCS: 36415; 80053; 82306; 84443; 85025

== ENCOUNTER → 2023-12-07 | Outpatient (CLI) | payer MEDICARE, OTHER, SELFPAY ==
[2023-12-07 21:43] LABS: PSA,Total- Diagnostic 3.37 ng/mL (0.0-4.0)
== END | disposition home or self-care (01) ==
PROVIDERS: PCP Family Medicine Geriatric Medicine; Referring Provider Urology; Visit Provider Urology
DX: C61 Malignant neoplasm of prostate (principal)
CPT/HCPCS: 36415; 84153

== ENCOUNTER → 2024-08-02 | Outpatient (CLI) | payer MEDICARE, OTHER, SELFPAY ==
[2024-08-02 10:23] LABS: Absolute Lymphocyte Count 1.92 X10^3/uL (0.83-4.51); Absolute Neutrophil Count 5.4 X10^3/uL (2.0-7.7); Basophil# 0.06 X10^3/uL; Basophil% 0.7 % (0-1); Eosinophil# 0.05 X10^3/uL; Eosinophils% 0.6 % (0-5); Hematocrit 46.7 % (40-54); Hemoglobin 15.6 g/dL (13.0-16.5); Lymphocyte # 1.92 X10^3/ul (0.83-4.51); Lymphocyte % 22.6 % (19-41); Mean Corp Hgb Conc 33.4 g/dL (32-36); Mean Corpuscular Hgb 30.2 pg (27.0-32.0); Mean Corpuscular Volume 90.3 fL (80-94); Mean Platelet Vol. 9.3 fl (6.2-12.0); Monocyte% 11.8 % (0-10); NRBC Flagged by Analyzer 0 % (0-5); Neutrophil # 5.42 X10^3/uL (2.7-7.7); Neutrophil % 63.7 % (47-70); Platelet Count 271 K/mm3 (150-450); RBC Distribution Width CV 13.2 % (11.6-14.6); RBC Distribution Width SD 43.8 fl (35.1-43.9); Red Blood Count 5.17 M/mm3 (4.6-6.2); White Blood Count 8.5 K/mm3 (4.4-11.0)
[2024-08-02 11:32] LABS: ALB/GLOB Ratio 1.2 RATIO (0.9-2.4); AST(SGOT) 16 U/L (15-37); Alanine Aminotransfer ALT/SGPT 18 U/L (16-61); Albumin, Serum 3.9 g/dL (3.2-5.0); Alkaline Phosphatase 59 U/L (45-117); Anion Gap 6 (5-15); BUN 11 mg/dL (7-18); BUN/Creat Ratio 8.7 RATIO (10-20); Calcium,Total 9.4 mg/dL (8.5-10.1); Chloride 108 mmol/L (98-107); Creatinine, Serum 1.27 mg/dL (0.70-1.30); EST Glomerular Filtration Rate 60 mL/min (>60); Est Glom Filt Rate - Afr Amer 72 mL/min (>60); Globulin 3.2 g/dL (2.2-4.2); Glucose 104 mg/dL (74-106); Potassium 4.4 mmol/L (3.5-5.1); Protein, Total 7.1 g/dL (6.4-8.2); Sodium Level 141 mmol/L (136-145)
== END | disposition home or self-care (01) ==
LOC: POLAB3 10:06
PROVIDERS: PCP Family Medicine Geriatric Medicine; Visit Provider Family Medicine Geriatric Medicine
DX: Z12.5 Encounter for screening for malignant neoplasm of prostate (principal); R53.83 Other fatigue; E55.9 Vitamin D deficiency, unspecified
CPT/HCPCS: 36415; 80053; 82306; 84443; 85025

== ENCOUNTER → 2024-08-17 | Outpatient (CLI) | payer MEDICARE, OTHER, SELFPAY ==
[2024-08-17 16:16] LABS: PSA,Total- Diagnostic 3.85 ng/mL (0.00-4.00)
== END | disposition home or self-care (01) ==
LOC: LAB 14:44
PROVIDERS: PCP Family Medicine Geriatric Medicine; Referring Provider Nurse Practitioner; Visit Provider Nurse Practitioner
DX: C61 Malignant neoplasm of prostate (principal)
CPT/HCPCS: 36415; 84153